=== PATIENT | female | born 1990 | race Caucasian/White ===

== ENCOUNTER 2017-02-15 12:28 | Emergency (ER) | payer MEDICAID ==
[~2017-02-15] VITALS: Ht 152.4 cm; Wt 56.7 kg
[~2017-02-15 12:28] MED LIST: ACHYD1T PO; AMOX500C2 PO; CLIN150C2 PO; CYCL10TA9 PO; DCS100C PO; DOCU100C37 PO; FERR-57 PO; HYDR100C2 PO; IBP800T PO; IBUP-1780 PO; MIRT15TA PO; OXYC-465 PO; PREN1TAB39 PO; RISP0.253 PO; TRAZ150T72 PO; TRM50T PO; VENL75CA PO
[2017-02-15] MEDS ORDERED: NS IV 1000 ML 1,000 ML IV ONE (12:48)
[2017-02-15 12:58] LABS: BASOPHILS % (AUTO) 1 % (0-10); EOSINOPHILS # (AUTO) 0.2 10^3/uL (0.0-0.3); EOSINOPHILS % (AUTO) 3 % (0-10); LYMPHOCYTES # (AUTO) 2.6 X 10^3 (1.0-4.0); LYMPHOCYTES % (AUTO) 39 % (12-44); MEAN CORPUSCULAR HEMOGLOBIN 29 PG (25-34); MEAN CORPUSCULAR HGB CONC 34 G/DL (32-36); MEAN CORPUSCULAR VOLUME 86 FL (80-99); MEAN PLATELET VOLUME 10.5 FL (7.4-10.4); MONOCYTES # (AUTO) 0.7 X 10^3 (0.0-1.0); MONOCYTES % (AUTO) 11 % (0-12); NEUTROPHILS % (AUTO) 46 % (42-75); PLATELET COUNT 256 10^3/uL (130-400); RED BLOOD COUNT 4.56 10^6/uL (4.35-5.85); RED CELL DISTRIBUTION WIDTH 14.4 % (10.0-14.5); WHITE BLOOD COUNT 6.5 10^3/uL (4.3-11.0)
[2017-02-15] MEDS ORDERED: D5 NS 1000 ML IV SOLUTION 1,000 ML IV ONE ×2 (13:16→13:21)
[2017-02-15 13:18] LABS: ALANINE AMINOTRANSFERASE 82 U/L (0-55); ALBUMIN 4.1 GM/DL (3.2-4.5); ALCOHOL < 10 MG/DL (<10); ANION GAP 10 MMOL/L (5-14); ASPARTATE AMINO TRANSFERASE 43 U/L (5-34); BILIRUBIN,TOTAL 0.3 MG/DL (0.1-1.0); BLOOD UREA NITROGEN 10 MG/DL (7-18); BUN/CREATININE RATIO 13; CALCIUM 9.3 MG/DL (8.5-10.1); CARBON DIOXIDE 23 MMOL/L (21-32); CHLORIDE 102 MMOL/L (98-107); CREATININE SERUM 0.77 MG/DL (0.60-1.30); GFR ESTIMATED > 60; MAGNESIUM 1.9 MG/DL (1.8-2.4); POTASSIUM 3.9 MMOL/L (3.6-5.0); SODIUM 135 MMOL/L (135-145); TOTAL PROTEIN 7.9 GM/DL (6.4-8.2)
--- NOTE | 2017-02-15 13:18 | ED Syncope ---
General Chief Complaint: Dizziness/Syncope Stated Complaint: FAINTING/BLCK OUT SPELLS Source of Information: Patient Exam Limitations: No Limitations History of Present Illness Time Seen by Provider: 12:38 Initial Comments This 26-year-old young lady presents to the emergency room with complaints of multiple episodes of syncope yesterday. She did have a couple episodes of very brief complete loss of consciousness. Lightheadedness and syncope always occurred when upright. She reports having headache from bumping her head on the edge of the bathtub. She does not believe this was a significant injury. There was no loss of consciousness. She denies any fever. She reports having a remote history of seizure but has not had seizures in many years and does not take medication for them. She denies any drug or alcohol use. She denies any significant heat exposure. Orthostatic vital signs were positive during initial assessment. Allergies and Home Medications Allergies Coded Allergies: No Known Drug Allergies (Unverified , 06/24/16) Home Medications Cephalexin 500 Mg Capsule, 500 MG PO QID, #28 Prescribed by: CAREY FOWLER on 02/15/17 1601 Docusate Sodium 100 Mg Capsule, 100 MG PO BID, #60 Prescribed by: SAMUEL DUMONT on 06/29/16 1720 Ibuprofen 800 Mg Tablet, 800 MG PO Q6HR, #60 Prescribed by: SAMUEL DUMONT on 06/29/16 1720 Mirtazapine 15 Mg Tablet, 15 MG PO HS, #0 Prescribed by: DAREN ARRIOLA on 06/29/16 0948 Oxycodone HCl/Acetaminophen 1 Each Tablet, 1-2 TAB PO Q4H PRN for PAIN, #60 Prescribed by: SAMUEL DUMONT on 06/29/16 1720 Risperidone 0.25 Mg Tablet, 0.25 MG PO BID, (Reported) Venlafaxine HCl 75 Mg Cap.er.24h, 75 MG PO DAILY, (Reported) Constitutional: no symptoms reported, No fever EENTM: no symptoms reported Respiratory: no symptoms reported Cardiovascular: see HPI Gastrointestinal: no symptoms reported Genitourinary: no symptoms reported : No Control/STD Prophylaxis: Other (hysterectomy) Musculoskeletal: no symptoms reported Skin: other (multiple scars throughout the skin from "bug bites") Psychiatric/Neurological: See HPI Past Mgqwaro-Xxfmqv-Awzkpr Hx Patient Social History Alcohol Use: Denies Use Recreational Drug Use: Yes (denies but prior documentation reports methamphetamine and Xanax use) Type Used: Cigarettes Recent Foreign Travel: No Contact w/Someone Who Travel: No Recent Hopitalizations: Yes (VAGINAL DELIVERY X2, , OVERDOSE 2-3 WEEKS AGO) Immunizations Up To Date Tetanus Booster (TDap): Unknown Seasonal Allergies Seasonal Allergies: No Surgeries HX Surgeries: Yes (D&C) Surgeries: Section, Hysterectomy ("partial"), Tonsillectomy Respiratory Hx Respiratory Disorders: No Cardiovascular Hx Cardiac Disorders: No Neurological Hx Neurological Disorders: No 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 System Hx 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: Yes (DUB, UTERINE PROLAPSE) Sexually Transmitted Disease: No Female 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: Denies Genitourinary Hx Genitourinary Disorders: Yes Genitourinary Disorders: Bladder Infection, Kidney Stones Gastrointestinal Hx Gastrointestinal Disorders: No Musculoskeletal Hx Musculoskeletal Disorders: No Endocrine Hx Endocrine Disorders: No HEENT HX ENT Disorders: Yes (GLASSES) Loss of Vision: Bilateral Hearing Impairment: Denies Cancer Hx Cancer: No Psychosocial Hx Psychiatric Problems: Yes Behavioral Health Disorders: Sleep Difficulties, Anxiety (with "picking"), Suicide Attempts, Personality Disorder, Depression Integumentary HX Skin/Integumentary Disorder: No Blood Transfusions Hx Blood Disorders: No Adverse Reaction to a Blood Tr: No (N/A) Family Medical History Significant Family History: No Pertinent Family Hx Family Medial History: No Family History of: Asthma Completed stroke Diabetes mellitus Hypertension Myocardial infarction Seizure disorder Physical Exam Vital Signs Vital Sign - Last 12Hours Capillary Refill : General Appearance: No Apparent Distress, WD/WN HEENT: PERRL/EOMI, Normal ENT Inspection, Pharynx Normal Neck: Normal Inspection Cardiovascular: Regular Rate, Rhythm, No Edema, No Murmur Respiratory: No Accessory Muscle Use, No Respiratory Distress, Crackles (left base) Gastrointestinal: Normal Bowel Sounds, Non Tender, Soft Extremities: Normal Inspection, No Pedal Edema, Other (skin lesion/scars scattered mostly on the lower extremities) Neurologic/Psychiatric: Alert, Oriented x3, No Motor/Sensory Deficits, Normal Mood/Affect, statistician applied II-XII Norm as Tested Cranial Nerves: Normal Hearing, Normal Speech, PERRL Motor/Sensory: No Motor Deficit, No Sensory Deficit Skin: Normal Color, Warm/Dry, Other (see above) Progress/Results/Core Measures Results/Orders Lab Results Laboratory Tests Test 02/15/17 12:55 02/15/17 13:45 02/15/17 14:35 Range/Units White Blood Count 6.5 4.3-11.0 10^3/uL Red Blood Count 4.56 4.35-5.85 10^6/uL Hemoglobin 13.4 11.5-16.0 G/DL Hematocrit 39 35-52 % Mean Corpuscular Volume 86 80-99 FL Mean Corpuscular Hemoglobin 29 25-34 PG Mean Corpuscular Hemoglobin Concent 34 32-36 G/DL Red Cell Distribution Width 14.4 10.0-14.5 % Platelet Count 256 130-400 10^3/uL Mean Platelet Volume 10.5 H 7.4-10.4 FL Neutrophils (%) (Auto) 46 42-75 % Lymphocytes (%) (Auto) 39 12-44 % Monocytes (%) (Auto) 11 0-12 % Eosinophils (%) (Auto) 3 0-10 % Basophils (%) (Auto) 1 0-10 % Neutrophils # (Auto) 3.0 1.8-7.8 X 10^3 Lymphocytes # (Auto) 2.6 1.0-4.0 X 10^3 Monocytes # (Auto) 0.7 0.0-1.0 X 10^3 Eosinophils # (Auto) 0.2 0.0-0.3 10^3/uL Basophils # (Auto) 0.0 0.0-0.1 10^3/uL Sodium Level 135 135-145 MMOL/L Potassium Level 3.9 3.6-5.0 MMOL/L Chloride Level 102 98-107 MMOL/L Carbon Dioxide Level 23 21-32 MMOL/L Anion Gap 10 5-14 MMOL/L Blood Urea Nitrogen 10 7-18 MG/DL Creatinine 0.77 0.60-1.30 MG/DL Estimat Glomerular Filtration Rate > 60 BUN/Creatinine Ratio 13 Glucose Level 57 *L 70-105 MG/DL Calcium Level 9.3 8.5-10.1 MG/DL Magnesium Level 1.9 1.8-2.4 MG/DL Total Bilirubin 0.3 0.1-1.0 MG/DL Aspartate Amino Transf (AST/SGOT) 43 H 5-34 U/L Alanine Aminotransferase (ALT/SGPT) 82 H 0-55 U/L Alkaline Phosphatase 93 40-136 U/L Total Protein 7.9 6.4-8.2 GM/DL Albumin 4.1 3.2-4.5 GM/DL Serum Alcohol < 10 <10 MG/DL Glucometer 187 H 70-110 MG/DL Urine Color YELLOW Urine Clarity SLIGHTLY CLOUDY Urine pH 6 5-9 Urine Specific [place] 1.010 L 1.016-1.022 Urine Protein NEGATIVE NEGATIVE Urine Glucose (UA) NEGATIVE NEGATIVE Urine Ketones NEGATIVE NEGATIVE Urine Nitrite POSITIVE H NEGATIVE Urine Bilirubin NEGATIVE NEGATIVE Urine Urobilinogen NORMAL NORMAL MG/DL Urine Leukocyte Esterase 2+ H NEGATIVE Urine RBC (Auto) NEGATIVE NEGATIVE Urine RBC NONE /HPF Urine WBC 10-25 H /HPF Urine Squamous Epithelial Cells 10-25 H /HPF Urine Crystals NONE /LPF Urine Bacteria LARGE H /HPF Urine Casts NONE /LPF Urine Mucus NEGATIVE /LPF Urine Culture Indicated YES Urine Opiates Screen NEGATIVE NEGATIVE Urine Oxycodone Screen NEGATIVE NEGATIVE Urine Methadone Screen NEGATIVE NEGATIVE Urine Propoxyphene Screen NEGATIVE NEGATIVE Urine Barbiturates Screen NEGATIVE NEGATIVE Ur Tricyclic Antidepressants Screen NEGATIVE NEGATIVE Urine Phencyclidine Screen NEGATIVE NEGATIVE Urine Amphetamines Screen NEGATIVE NEGATIVE Urine Methamphetamines Screen NEGATIVE NEGATIVE Urine Benzodiazepines Screen NEGATIVE NEGATIVE Urine Cocaine Screen NEGATIVE NEGATIVE Urine Cannabinoids Screen NEGATIVE NEGATIVE Micro Results Microbiology 02/15/17 Urine Culture - Preliminary, Resulted Escherichia Coli Yeast Species My Orders Orders - CAREY GERMAN MD Alcohol (02/15/17 12:48) Cbc With Automated Diff (02/15/17 12:48) Comprehensive Metabolic Panel (02/15/17 12:48) Drug Screen Stat (Urine) (02/15/17 12:48) Magnesium (02/15/17 12:48) Ua Culture If Indicated (02/15/17 12:48) Ekg Tracing (02/15/17 12:48) Monitor-Rhythm Ecg Trace Only (02/15/17 12:48) Chest 1 View, Ap/Pa Only (02/15/17 12:48) Saline Lock/Iv-Start (02/15/17 12:48) Ns Iv 1000 Ml (Sodium Chloride 0.9%) (02/15/17 12:48) Orthostatic Vital Signs (02/15/17 12:48) D5 Ns 1000 Ml Iv Solution (Dextrose 5%/0 (02/15/17 13:21) D5 Ns 1000 Ml Iv Solution (Dextrose 5%/0 (02/15/17 13:16) Accucheck Stat ONCE (02/15/17 13:35) Urine Culture (02/15/17 14:35) Ceftriaxone Injection (Rocephin Injectio (02/15/17 15:15) Ns Iv 500 Ml (Sodium Chloride 0.9%) (02/15/17 15:07) Iv Infusion <= First Hr Ed (02/15/17 ) Medications Given in ED Vital Signs/I&O Vital Sign - Last 12Hours 02/15/17 02/15/17 02/15/17 13:00 13:00 16:15 Temp 98.2 Pulse 75 61 68 78 87 Resp 20 20 B/P (MAP) 98/57 Pulse Ox 100 100 Progress Note #1: Time: 13:12 Progress Note Patient has been seen and examined. Orthostatic vital signs were obtained with a significant drop in blood pressure and significant increase in heart rate. Patient is receiving IV fluids. Labs and chest x-ray pending. Progress Note #2: Time: 13:22 Progress Note Blood sugar was noted to be 57 on her blood draw. Patient will be given some crackers to eat and her normal saline will be switched out with D5 normal saline. She remains alert and oriented. Progress Note #3: Progress Note Blood sugar improved to 187 after receiving a liter of D5 normal saline and eating crackers. She received a total of 1500 mL in fluid boluses. Hypotension resolved. She was found to have urinary tract infection and was given Rocephin. Review of her medication list noted risperidone. Risperidone could cause hypotension but patient denies any recent use. She was asymptomatic in the standing position prior to dismissal. ECG Initial ECG Impression Date: Feb 15, 2017 Initial ECG Impression Time: 12:58 Initial ECG Rate: 63 Initial ECG Rhythm: Normal Sinus Initial ECG Intervals: QT (prolonged) Comment Sinus rhythm with no ST elevation or depression. Prolonged QT interval. Automated read states consider RVH with secondary repolarization. T waves appear slightly peaked. Diagnostic Imaging Diagonstic Imaging: Xray Plain Films/CT/US/NM/MRI: chest Comments Chest x-ray viewed by me and report reviewed. See report below: NAME: FARIBA JOLLEY [facility] REC#: [id number] PT STATUS: REG ER : 1990 PHYSICIAN: CAREY GERMAN MD ADMIT DATE: 02/15/17/ER Draft Date of Exam:02/15/17 CHEST 1 VIEW, AP/PA ONLY EXAMINATION: Portable erect AP chest at 1:06 p.m. INDICATION: Syncope. FINDINGS: The heart size is within normal limits and stable when compared to 06/27/2016. The lungs remain clear. There is still no sign of failure, pneumonia, or of pleural effusion. The mediastinum is not widened. The osseous structures are intact. IMPRESSION: There is no evidence for active disease. Dictated on workstation # [id number] Dict: 02/15/17 1317 Trans: 02/15/17 1321 [id number] Interpreted by: EHSAN SOLORZANO MD Departure Impression Impression: Primary Impression: Syncope Qualified Codes: R55 - Syncope and collapse Additional Impressions: Orthostatic hypotension Hypovolemia Urinary tract infection Qualified Codes: N39.0 - Urinary tract infection, site not specified Disposition: 01 HOME, SELF-CARE Condition: Improved Departure-Patient Inst. Decision time for Depature: 15:30 Referrals: NO,LOCAL PHYSICIAN (PCP/Family) Primary Care Physician Patient Instructions: Orthostatic Hypotension (DC), Syncope (Fainting) (DC), Urinary Tract Infections in Adults Add. Discharge Instructions: Drink plenty of clear liquids. Complete your antibiotics as prescribed. Please follow-up with your primary care provider later this week and review your urine cultures with your doctor. Return to care if symptoms persist or worsen. All discharge instructions reviewed with patient and/or family. Voiced understanding. Scripts Cephalexin (Keflex) 500 Mg Capsule 500 MG PO QID, #28 CAP Prov: CAREY GERMAN MD 02/15/17 CAREY GERMAN MD Feb 15, 2017 13:18
[2017-02-15 13:20] LABS: GLUCOSE 57 MG/DL (70-105)
--- NOTE | 2017-02-15 13:21 | Diagnostic Imaging Report ---
EXAMINATION: Portable erect AP chest at 1:06 p.m. INDICATION: Syncope. FINDINGS: The heart size is within normal limits and stable when compared to 06/27/2016. The lungs remain clear. There is still no sign of failure, pneumonia, or of pleural effusion. The mediastinum is not widened. The osseous structures are intact. IMPRESSION: There is no evidence for active disease. Dictated by: Dictated on workstation # [id number]
[2017-02-15 14:42] LABS: BILIRUBIN,URINE NEGATIVE (NEGATIVE); KETONES,URINE NEGATIVE (NEGATIVE); LEUKOCYTE ESTERASE ,URINE 2+ (NEGATIVE); NITRITE,URINE POSITIVE (NEGATIVE); PH,URINE 6 (5-9); PROTEIN,URINE NEGATIVE (NEGATIVE); UROBILINOGEN,URINE NORMAL (NORMAL)
[2017-02-15] MEDS ORDERED: NS IV 500 ML 500 ML IV ONE (15:07)
[2017-02-15] MEDS ORDERED: cefTRIAXone INJECTION 1,000 MG in NS (IVPB) 50 ML IV ONE (15:15)
[2017-02-15] MEDS ORDERED: CEPH-507 PO (16:01)
[2017-02-15 16:15] VITALS: BP 91/58
--- OUTSIDE RECORDS SUMMARY | 2017-02-24 18:31 | XMS REPORT ---
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
--- OUTSIDE RECORDS SUMMARY | 2017-02-24 18:31 | XMS REPORT ---
Author RUTH Rodriguez eClinical[employer] Address Unknown Phone Unavailable Care Team Providers Care Behavior Therapist Name Role Phone RUTH SAMANO CP Unavailable Allergies, Adverse Reactions, Alerts Substance Reaction Event Type N.K.D.A. Info Not Available Non Drug Allergy Problems Problem Type Condition Code Onset Dates Condition Status Problem Lumbago 724.2 Active Problem Person feigning illness V65.2 Active Problem Influenza with other respiratory manifestations 487.1 Active Assessment Dental examination Z01.20 Active Problem Encounter for counseling regarding contraception Z30.9 Active Problem Encounter for initial prescription of injectable contraceptive Z30.013 Active Problem History of abnormal cervical Pap smear Z87.898 Active Problem Other convulsions 780.39 Active Problem Unspecified epilepsy without mention of intractable epilepsy 345.90 Active Problem Major depress, sev w/ psych F32.3 Active Problem 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 Medications Medication Code System Code Instructions Start Date End Date Status Dosage Depo-Provera [facility] [address]-45 150 MG/ML Intramuscular q3 months Apr 30, 2015 Apr 24, 2016 1 ml Amoxicillin [facility] [address]-89 500 MG Orally 4 times a day Apr 22, 2016 Apr 29, 2016 1 capsule Procedures Procedure Coding System Code Date BITEWINGS - FOUR FILMS CPT-4 D0274 Apr 22, 2016 PANORAMIC FILM SEE ALSO CODE 25625 CPT-4 D0330 Apr 22, 2016 COMP ORAL EVALUATION - NEW/EST PT CPT-4 D0150 Apr 22, 2016 Vital Signs Date/Time: Apr 22, 2016 Blood Pressure Diastolic 69 mmHg Blood Pressure Systolic 134 mmHg Height 58 in Results No Known Results Summary Purpose eClinicalWorks Submission
--- OUTSIDE RECORDS SUMMARY | 2017-02-24 18:31 | XMS REPORT ---
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
--- OUTSIDE RECORDS SUMMARY | 2017-02-24 18:31 | XMS REPORT ---
Author PRETTY Ledezma [facility] eClinicalWorks Address Unknown Phone Unavailable Care Team Providers Care Chronometer Assembler And Adjuster Name Role Phone PRETTY REMY CP Unavailable Allergies No Known Allergies Problems Problem Type Condition ICD-9 Code Onset Dates Condition Status Problem Unspecified epilepsy without mention of intractable epilepsy 345.90 Active Problem Person feigning illness V65.2 Active Problem Other convulsions 780.39 Active Assessment Dental examination V72.2 Active Problem Influenza with other respiratory manifestations 487.1 Active Problem Lumbago 724.2 Active Medications No Known Medications Procedures Procedure Coding System Code Date INTRAORL-PERIAPICAL 1 FILM 93095 CPT-4 D0220 February 22, 2015 BITEWING - SINGLE FILM CPT-4 D0270 February 22, 2015 LTD ORAL EVALUATION - PROBLEM FOCUS CPT-4 D0140 February 22, 2015 EXTRAC ERUPTED TOOTH/EXPOSED ROOT CPT-4 D7140 February 22, 2015 Results No Known Results Summary Purpose eClinicalWorks Submission
--- OUTSIDE RECORDS SUMMARY | 2017-02-24 18:31 | XMS REPORT ---
Author Author SALIMA WHITLOCK [facility] Address [address] [place] [address] Care Team Providers Care Lead Rider Name Role Phone SALIMA WHITLOCK Unavailable PROBLEMS Type Condition ICD9-CM Code [id number] Code Onset Dates Condition Status SNOMED Code Problem Influenza with other respiratory manifestations 487.1 Active 0512238 Problem Unspecified epilepsy without mention of intractable epilepsy 345.90 Active 85191743 Problem Person feigning illness V65.2 Active 26966256 Problem Lumbago 724.2 Active 829904328 Problem History of abnormal cervical Pap smear Z87.898 Active 121260593 Problem Encounter for counseling regarding contraception Z30.9 Active 47706850 Problem 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
--- OUTSIDE RECORDS SUMMARY | 2017-02-24 18:31 | XMS REPORT ---
Author Author SALIMA WHITLOCK [facility] eClinicalWorks Address Unknown Phone Unavailable Care Team Providers Care Jointer Operator Name Role Phone SALIMA WHITLOCK Unavailable Allergies, Adverse Reactions, Alerts Substance Reaction Event Type N.K.D.A. Info Not Available Non Drug Allergy Problems Problem Type Condition Code Onset Dates Condition Status Problem Lumbago 724.2 Active Problem Person feigning illness V65.2 Active Problem Influenza with other respiratory manifestations 487.1 Active Problem Encounter for counseling regarding contraception Z30.9 Active Problem Encounter for initial prescription of injectable contraceptive Z30.013 Active Problem History of abnormal cervical Pap smear Z87.898 Active Problem Other convulsions 780.39 Active Problem Unspecified epilepsy without mention of intractable epilepsy 345.90 Active Problem Major depress, sev w/ psych F32.3 Active Problem 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 Assessment Routine gynecological examination Z01.419 Active Assessment Encounter for initial prescription of injectable contraceptive Z30.013 Active Assessment Encounter for counseling regarding contraception Z30.9 Active Assessment Encounter for Depo-Provera contraception Z30.42 Active Assessment History of abnormal cervical Pap smear Z87.898 Active Medications No Known Medications Procedures Procedure Coding System Code Date SPECIMEN HANDLING CPT-4 14964 Mar 24, 2016 No Charge CPT-4 63184 Mar 24, 2016 URINE TEST CPT-4 99265 Mar 24, 2016 THER/PROPH/DIAG INJ, SC/IM CPT-4 79905 Mar 24, 2016 STYLES VAG, DNA, DIR PROBE CPT-4 92773 Mar 24, 2016 [facility] CPT-4 NOBLL Mar 24, 2016 DEPO PROVERA (150 MG/ML) CPT-4 J1050 Mar 24, 2016 Office Visit, Est Pt., Level 5 CPT-4 76795 Mar 24, 2016 Vital Signs Date/Time: Mar 24, 2016 Cardiac Monitoring Heart Rate 90 bpm Weight 106.2 lbs Height 58 in BMI 22.19 Index Blood Pressure Diastolic 62 mmHg Blood Pressure Systolic 98 mmHg Results No Known Results Summary Purpose eClinicalWorks Submission
--- OUTSIDE RECORDS SUMMARY | 2017-02-24 18:31 | XMS REPORT ---
Author PRETTY Ledezma [facility] eClinicalWorks Address Unknown Phone Unavailable Care Team Providers Care Blown Film Extrusion Operator Name Role Phone PRETTY REMY CP Unavailable Allergies, Adverse Reactions, Alerts Substance Reaction Event Type N.K.D.A. Info Not Available Non Drug Allergy Problems Problem Type Condition Code Onset Dates Condition Status Problem Unspecified epilepsy without mention of intractable epilepsy 345.90 Active Problem Person feigning illness V65.2 Active Problem Other convulsions 780.39 Active Assessment Dental examination Z01.20 Active Assessment Dental caries K02.9 Active Problem Influenza with other respiratory manifestations 487.1 Active Problem Lumbago 724.2 Active Medications No Known Medications Procedures Procedure Coding System Code Date INTRAORL-PERIAPICAL 1 FILM 64295 CPT-4 D0220 Jul 30, 2015 EXTRAC ERUPTED TOOTH/EXPOSED ROOT CPT-4 D7140 Jul 30, 2015 LTD ORAL EVALUATION - PROBLEM FOCUS CPT-4 D0140 Jul 30, 2015 Vital Signs Date/Time: Jul 30, 2015 Blood Pressure Diastolic 59 mmHg Blood Pressure Systolic 101 mmHg Results No Known Results Summary Purpose eClinicalWorks Submission
--- OUTSIDE RECORDS SUMMARY | 2017-02-24 18:31 | XMS REPORT ---
Author Author VY ZHANG [facility] eClinicalWorks Address Unknown Phone Unavailable Care Team Providers Care Hot Metal Mixer Operator Helper Name Role Phone VY ZHANG CP Unavailable Allergies, Adverse Reactions, Alerts Substance Reaction Event Type N.K.D.A. Info Not Available Non Drug Allergy Problems Problem Type Condition Code Onset Dates Condition Status Problem Lumbago 724.2 Active Problem Person feigning illness V65.2 Active Problem Influenza with other respiratory manifestations 487.1 Active Assessment Acute non-recurrent maxillary sinusitis J01.00 Active Assessment Acute cystitis without hematuria N30.00 Active Problem Encounter for counseling regarding contraception [...] Instructions Start Date End Date Status Dosage Venlafaxine HCl [facility] [address]-74 75 MG Orally Once a day 1 tablet with food HydrOXYzine HCl [facility] [address]-30 25 MG/ML Intramuscular not defined Bactrim DS [facility] [address]-27 800-160 MG Orally Twice a day May 19, 2016 May 29, 2016 1 tablet Ibuprofen [facility] [address]-65 800 MG Orally Three times a day May 19, 2016 May 29, 2016 1 tablet Trazodone HCl [facility] [address]-31 100 MG Orally Once a day 1 tablet at bedtime Fluticasone Propionate [facility] [address]-53 50 MCG/ACT Nasally Once a day May 19, 2016 1-2 spray in each nostril Procedures Procedure Coding System Code Date Office Visit, Est Pt., Level 3 CPT-4 39516 May 19, 2016 URINALYSIS, AUTO, W/O SCOPE CPT-4 01797 May 19, 2016 Vital Signs Date/Time: May 19, 2016 Cardiac Monitoring Heart Rate 100 bpm Weight 112.8 lbs Height 58 in BMI 23.57 Index Blood Pressure Diastolic 74 mmHg Blood Pressure Systolic 120 mmHg Results Name Result Date Reference Range Unit Abnormality Flag UA LONG DIP (IN HOUSE) ----JAJA 1+ [id number] ----NIT positive [id number] ----Exp date [id number] ----Lot # [id number] ----SG 1.010 [id number] ----KET negative [id number] ----LEO negative [id number] ----GLU negative [id number] ----Odor none [id number] ----pH 6.0 20160519 ----BLO negative [id number] ----URO 0.2 20160519 ----Protein negative [id number] ----Lot # [id number] ----Exp date [id number] ----Clarity clear 20160519 ----Color yellow [id number] Summary Purpose eClinicalWorks Submission
--- OUTSIDE RECORDS SUMMARY | 2017-02-24 18:31 | XMS REPORT ---
Author PRETTY Ledezma [facility] eClinicalWorks Address Unknown Phone Unavailable Care Team Providers Care Promotion Officer Name Role Phone PRETTY REMY CP Unavailable [...] Procedures Procedure Coding System Code Date INTRAORL-PERIAPICAL EA ADD FILM CPT-4 D0230 Mar 28, 2015 BITEWING - SINGLE FILM CPT-4 D0270 Mar 28, 2015 INTRAORL-PERIAPICAL 1 FILM 80702 CPT-4 D0220 Mar 28, 2015 EXTRAC ERUPTED TOOTH/EXPOSED ROOT CPT-4 D7140 Mar 28, 2015 Results No Known Results Summary Purpose eClinicalWorks Submission
--- OUTSIDE RECORDS SUMMARY | 2017-02-24 18:32 | XMS REPORT ---
Author Author MONTRELLSHERMANKELLY Organization [facility] Address [address] [place] [address] Care Team Providers Care Ribbon Sweatband Operator Name Role Phone STOCKKELLY Ramsey Unavailable PROBLEMS Type Condition ICD9-CM Code [id number] Code Onset Dates Condition Status SNOMED Code Problem Influenza with other respiratory manifestations 487.1 Active 1418589 Problem Unspecified epilepsy without mention of intractable epilepsy 345.90 Active 91197697 Problem Person feigning illness V65.2 Active 97327753 Assessment Cystitis N30.90 Jul, Active 76746411 Assessment Burning with urination R30.0 Jul, Active 11338550 Problem Lumbago 724.2 Active 231236996 Problem History of abnormal cervical Pap smear Z87.898 Active 364097022 Problem Encounter for counseling regarding contraception Z30.9 Active 95432390 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 Unknown Non Drug Allergy Jul, Unknown SOCIAL HISTORY No smoking Hx information available PLAN OF CARE VITAL SIGNS Height 58 in 2016-07-13 Weight 124.4 lbs 2016-07-13 Heart Rate 88 bpm 2016-07-13 Respiratory Rate 20 2016-07-13 BMI 26.00 kg/m2 2016-07-13 Blood pressure systolic 114 mmHg 2016-07-13 Blood pressure diastolic 66 mmHg 2016-07-13 MEDICATIONS Medication Instructions Dosage Frequency Start Date End Date Duration Status HydrOXYzine HCl 25 MG/ML Active Pyridium 100 MG Orally Three times a day 1 tablets after meals 8h Jul, Jul, 2 day(s) Active Bactrim DS 800-160 MG Orally Twice a day 1 tablet 12h Jul,Jul 05 days Active RESULTS Name Result Date Reference Range UA LONG DIP (IN HOUSE) 2016-07-13 Lot # [id number] Exp date 2017 08 31 Clarity clear Color yellow Odor none GLU negative LEO negative KET negative SG 1.020 BLO negative pH 6.5 Protein negative URO 0.2 NIT positive JAJA negative Lot # [id number] Exp date 2017 09 PROCEDURES Procedure Date Ordered Related Diagnosis Body Site URINALYSIS, AUTO, W/O SCOPE Jul 13, 2016 Office Visit, Est Pt., Level 3 Jul 13, 2016 IMMUNIZATIONS No Known Immunizations
--- OUTSIDE RECORDS SUMMARY | 2017-02-24 18:32 | XMS REPORT ---
Author Author MADELYN LOAIZA [facility] eClinicalWorks Address Unknown Phone Unavailable Care Team Providers Care Satellite Dish Technician Name Role Phone MADELYN LOAIZA CP Unavailable Allergies, Adverse Reactions, Alerts Substance Reaction Event Type N.K.D.A. Info Not Available Non Drug Allergy Problems Problem Type Condition Code Onset Dates Condition Status Assessment Major depress, sev w/ psych F32.3 Active [...] illness V65.2 Active Medications No Known Medications Procedures Procedure Coding System Code Date Office Visit, New Pt., Level 5 CPT-4 58728 February 21, 2016 Vital Signs Date/Time: February 21, 2016 Cardiac Monitoring Heart Rate 139 bpm Weight 97.6 lbs Height 58 in Blood Pressure Diastolic 75 mmHg Blood Pressure Systolic 90 mmHg Results No Known Results Summary Purpose eClinicalWorks Submission
--- OUTSIDE RECORDS SUMMARY | 2017-02-24 18:32 | XMS REPORT ---
Author GARCÍA Amor [facility] eClinicalWorks Address Unknown Phone Unavailable Care Team Providers Care Reaming Machine Tender Name Role Phone GARCÍA VILLA CP Unavailable Allergies, Adverse Reactions, Alerts Substance Reaction Event Type N.K.D.A. Info Not Available Non Drug Allergy Problems Problem Type Condition Code Onset Dates Condition Status Problem Unspecified epilepsy without mention of intractable epilepsy 345.90 Active Problem Person feigning illness V65.2 Active Problem Other convulsions 780.39 Active Assessment Atyp squam cell of undet signfc cyto smr crvx (ASC-US) R87.610 Active Assessment Cervical high risk human papillomavirus (HPV) DNA test positive R87.810 Active Problem Influenza with other respiratory manifestations 487.1 Active Problem Lumbago 724.2 Active Medications Medication Code System Code Instructions Start Date End Date Status Dosage Depo-Provera IAC [address]-28 150 MG/ML Intramuscular q3 months Apr 30, 2015 Apr 24, 2016 1 ml Procedures Procedure Coding System Code Date URINE TEST CPT-4 97937 May 15, 2015 Vital Signs Date/Time: May 15, 2015 Temperature 98.0 F Weight 113.0 lbs Height 58 in BMI 23.61 Index Blood Pressure Diastolic 64 mmHg Blood Pressure Systolic 112 mmHg Cardiac Monitoring Heart Rate 84 bpm Results Name Result Date Reference Range Unit Abnormality Flag TEST, URINE (IN HOUSE) Summary Purpose eClinicalWorks Submission
--- OUTSIDE RECORDS SUMMARY | 2017-02-24 18:32 | XMS REPORT ---
Author Author SIMÓN DECKER eClinicalWorks Address Unknown Phone Unavailable Care Team Providers Care Mechanical Estimator Name Role Phone SIMÓN DECKER CP Unavailable Allergies No Known Allergies Problems [...] Medications Procedures Procedure Coding System Code Date Psychotherapy, patient &/family, 30 minutes, established patient CPT-4 08122 February 20, 2016 Results No Known Results Summary Purpose eClinicalWorks Submission
== END 2017-02-15 16:15 | disposition home or self-care (01) ==
LOC: EDUNIT# 12:28 → ER 12:33
DX: I95.1 Orthostatic hypotension (principal); N39.0 Urinary tract infection, site not specified; E86.1 Hypovolemia; F41.9 Anxiety disorder, unspecified; F32.9 Major depressive disorder, single episode, unspecified; F60.9 Personality disorder, unspecified; Z87.448 Personal history of other diseases of urinary system; Z90.711 Acquired absence of uterus with remaining cervical stump; Z91.5 Personal history of self-harm; Z87.442 Personal history of urinary calculi
CPT/HCPCS: 36415; 71010; 80053; 80306; 80320; 81000; 82962; 83735; 85025; 87088; 87186; 93005; 93041; 96361; 96365

== ENCOUNTER 2017-05-05 15:18 | Observation (INO) | payer MEDICAID ==
[~2017-05-05] VITALS: Ht 152.4 cm; Wt 46.7 kg
[~2017-05-05 15:18] MED LIST changes: +CEPH-507 PO; +WATER (STERILE) FOR INJECTION 20 ML ONE; +ZIPRASIDONE 20 MG INJ (GEODON) VIAL IM ONE
[2017-05-05] MEDS ORDERED: MIDAZOLAM 5 MG/5 ML (VERSED) VIAL ONE (15:43)
[2017-05-05] MEDS ORDERED: fentaNYL INJECTION 100 MCG/2 ML AMP ONE (15:43)
[2017-05-05] MEDS ORDERED: LIDOCAINE 1% INJ 20 ML (XYLOCAINE) VIAL ONE (15:44)
[2017-05-05] MEDS ORDERED: LIDOCAINE 1% INJ 20 ML (XYLOCAINE) VIAL INJ STA (16:02)
[2017-05-05] MEDS ORDERED: fentaNYL INJECTION 100 MCG/2 ML AMP IVP STA (16:02)
[2017-05-05] MEDS ORDERED: TETANUS,DIPTH,PERTUSS P/F (BOOSTRIX) 0.5 ML VIAL IM STA (16:02)
--- NOTE | 2017-05-05 16:08 | ED Psychosocial ---
General Stated Complaint: SUICIDAL;SELF INFLICTED LACERATION Nursing Triage Note: Self-inflicted laceration left wrist, suicide attempt Source: patient, police, EMS (RAYMOND WOLF) History of Present Illness Time seen by provider: 15:18 Initial Comments 26-year-old female patient presents to the emergency Department with reports of a self-inflicted laceration to left wrist and attempted suicide. PD and EMS state witnesses at the scene reported patient "cut her wrist with a knife." Patient states she put her arm through a window. Patient states she was previously on Depakote for seizure disorder and depression, but has not taken this for at least a year. Timing/Duration: just prior to arrival Associated Symptoms: anxiety, impaired concentration, suicidal ideation (RAYMOND WOLF) Allergies and Home Medications Allergies Coded Allergies: No Known Drug Allergies (Unverified , 06/24/16) Home Medications Acetaminophen 325 Mg Tablet, 650 MG PO Q6H, #60 Prescribed by: AMISHA HUGO on 05/06/17 1602 Cephalexin 250 Mg Capsule, 500 MG PO QID for 6 Days, #24 Prescribed by: OLEGARIO WARD on 05/06/17 1240 Divalproex Sodium 250 Mg Tablet.dr, 250 MG PO BID, (Reported) LAST FILLED #30 03-18-17 Constitutional: no symptoms reported EENTM: no symptoms reported Respiratory: No cough, No short of breath Cardiovascular: No chest pain, No palpitations, No syncope Gastrointestinal: no symptoms reported Genitourinary: no symptoms reported Musculoskeletal: No back pain, joint pain (left wrist), No neck pain Skin: see HPI, other (laceration left wrist) Psychiatric/Neurological: Anxiety, Depressed, Emotional Problems, Denies Numbness, Denies Paresthesia, Denies Seizure, Denies Tingling, Denies Weakness ( RAYMOND WOLF) All Other Systems Reviewed Negative Unless Noted: Yes (Negative excepted noted.) (RAYMOND WOLF) Past Dbeuiha-Imxgfk-Ponrhr Hx Patient Social History Type Used: Cigarettes Recent Hopitalizations: No (VAGINAL DELIVERY X2, , OVERDOSE 2-3 WEEKS AGO) (RAYMOND WOLF) Immunizations Up To Date Tetanus Booster (TDap): Unknown (RAYMOND WOLF) Seasonal Allergies Seasonal Allergies: No (RAYMOND WOLF) Surgeries History of Surgeries: Yes (D&C) Surgeries: Section, Hysterectomy, Tonsillectomy (RAYMOND WOLF) Respiratory History of Respiratory Disorde: No (RAYMOND WOLF) Cardiovascular History of Cardiac Disorders: No (RAYMOND WOLF) Neurological History of Neurological Disord: No (RAYMOND WOLF) 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 System Hx 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: Yes (DUB, UTERINE PROLAPSE) Sexually Transmitted Disease: No Female 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: Denies 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 (RAYMOND WOLF) Genitourinary Genitourinary Disorders: Bladder Infection, Kidney Stones (RAYMOND WOLF) Gastrointestinal History of Gastrointestinal Di: No (RAYMOND WOLF) Musculoskeletal History of Musculoskeletal Dis: No (RAYMOND WOLF) Endocrine History of Endocrine Disorders: No (RAYMOND WOLF) HEENT Loss of Vision: Bilateral Hearing Impairment: Denies (RAYMOND WOLF) Cancer History of Cancer: No (RAYMOND WOLF) Psychosocial History of Psychiatric Problem: Yes Behavioral Health Disorders: Sleep Difficulties, Anxiety, Suicide Attempts, Personality Disorder, Depression (RAYMOND WOLF) Integumentary History of Skin or Integumenta: No (RAYMOND WOLF) Blood Transfusions History of Blood Disorders: No Adverse Reaction to a Blood Tr: No (N/A) (RAYMOND WOLF) Reviewed Nursing Assessment Reviewed/Agree w Nursing PMH: Yes (RAYMOND WOLF) Family Medical History Significant Family History: No Pertinent Family Hx Family Medial History: No Family History of: Asthma Completed stroke Diabetes mellitus Hypertension Myocardial infarction Seizure disorder (RAYMOND WOLF) Family Medial History: No Family History of: Asthma Completed stroke Diabetes mellitus Hypertension Myocardial infarction Seizure disorder (LISBET TAYLOR MD) Physical Exam Vital Signs Vital Sign - Last 12Hours 05/05/17 15:18 Temp 98.3 Pulse 118 Resp 20 B/P (MAP) 144/99 Pulse Ox 99 O2 Delivery Room Air (LISBET TAYLOR MD) Vital Signs Capillary Refill : (RAYMOND WOLF) General Appearance: WD/WN, no apparent distress HEENT: PERRL/EOMI, pharynx normal, other (multiple sores on the face without cellulitis) Neck: supple, normal inspection Respiratory: lungs clear, normal breath sounds, no respiratory distress, no accessory muscle use Cardiovascular: normal peripheral pulses, regular rate, rhythm, no edema, no murmur Peripheral Pulses: 2+ Radial Pulses (R), 2+ Radial Pulses (L) Gastrointestinal: normal bowel sounds, non tender, soft, no organomegaly Extremities: no pedal edema, normal capillary refill, other (6 cm laceration left anterior wrist involving skin, SC, and muscle belly with active arterial and venous bleeding. TTP. Patient is able to move all fingers slightly. irregular 1 cm laceration posterior distal ring finger. several linear abrasions left mid and proximal anterior forearm without active bleeding. 2 cm irregular laceration left medial forearm without active bleeding.) Neurologic/Psychiatric: alert, oriented x 3, sensory deficit (left ring finger) , depressed affect, other (hysterical with any stimulation.) Appearance/Memory: no memory impairment, denies illness, disheveled, impaired insight Behavior/Eye Contact: avoids eye contact, decreased rate of speech, compulsive , uncooperative (at times uncooperative with exam.) Thoughts/Hallucinations: normal thought pattern, no apparent hallucination Skin: normal color, warm/dry, other (6 cm laceration left anterior wrist involving skin, SC, and muscle belly with active arterial and venous bleeding. irregular 1 cm laceration posterior distal ring finger. several linear abrasions left mid and proximal anterior forearm without active bleeding. 2 cm irregular laceration left medial forearm without active bleeding.) (RAYMOND WOLF) Progress/Results/Core Measures Results/Orders Lab Results Laboratory Tests Test 05/06/17 04:15 Range/Units White Blood Count 5.9 4.3-11.0 10^3/uL Red Blood Count 3.40 L 4.35-5.85 10^6/uL Hemoglobin 10.2 L 11.5-16.0 G/DL Hematocrit 30 L 35-52 % Mean Corpuscular Volume 87 80-99 FL Mean Corpuscular Hemoglobin 30 25-34 PG Mean Corpuscular Hemoglobin Concent 35 32-36 G/DL Red Cell Distribution Width 14.0 10.0-14.5 % Platelet Count 212 130-400 10^3/uL Mean Platelet Volume 10.9 H 7.4-10.4 FL Neutrophils (%) (Auto) 46 42-75 % Lymphocytes (%) (Auto) 41 12-44 % Monocytes (%) (Auto) 9 0-12 % Eosinophils (%) (Auto) 3 0-10 % Basophils (%) (Auto) 0 0-10 % Neutrophils # (Auto) 2.8 1.8-7.8 X 10^3 Lymphocytes # (Auto) 2.5 1.0-4.0 X 10^3 Monocytes # (Auto) 0.5 0.0-1.0 X 10^3 Eosinophils # (Auto) 0.2 0.0-0.3 10^3/uL Basophils # (Auto) 0.0 0.0-0.1 10^3/uL Sodium Level 138 135-145 MMOL/L Potassium Level 3.4 L 3.6-5.0 MMOL/L Chloride Level 109 H 98-107 MMOL/L Carbon Dioxide Level 21 21-32 MMOL/L Anion Gap 8 5-14 MMOL/L Blood Urea Nitrogen 3 L 7-18 MG/DL Creatinine 0.55 L 0.60-1.30 MG/DL Estimat Glomerular Filtration Rate > 60 BUN/Creatinine Ratio 5 Glucose Level 79 70-105 MG/DL Calcium Level 8.0 L 8.5-10.1 MG/DL Phosphorus Level 2.6 2.3-4.7 MG/DL Magnesium Level 1.5 L 1.8-2.4 MG/DL Total Bilirubin 0.4 0.1-1.0 MG/DL Aspartate Amino Transf (AST/SGOT) 37 H 5-34 U/L Alanine Aminotransferase (ALT/SGPT) 54 0-55 U/L Alkaline Phosphatase 67 40-136 U/L Total Protein 6.0 L 6.4-8.2 GM/DL Albumin 3.3 3.2-4.5 GM/DL (LISBET TAYLOR MD) My Orders Orders - LISBET TAYLOR MD Iv Push Vessel Welder Ed (05/05/17 ) Im/Sub-Q Injection Non-Ab Ed (05/05/17 ) (LISBET TAYLOR MD) Progress Note : Progress Note Patient seen and evaluated with LUIS Gaviria. I agree with above except as indicated. I agree with the plan of care. I discussed the case with Dr. Ayala. Admission appropriate and indicated. (LISBET TAYLOR MD) ECG Initial ECG Impression Date: May 05, 2017 Initial ECG Impression Time: 17:01 Initial ECG Rate: 89 Initial ECG Rhythm: Normal Sinus Initial ECG Intervals: Normal Initial ECG Impression: Normal Initial ECG Comparisson: Unchanged Comment Sinus rhythm. No STEMI or arrhythmia noted. ECG reviewed and discussed with Dr. Taylor. (ARYMOND WOLF) Departure Communication (Admissions) Time/Spoke to Admitting Phy: 16:[address] Olegario Ward accepts patient to her medical service Progress Notes 1600 Dr. Ayala in ED to evaluate the patient. Plan for admit to ICU for observation. When patient is medically cleared, [facility] will be contacted to evaluate the patient and to assist with inpt behavioral placement. Patient is resting comfortably after being given Geodon, Versed, and fentanyl. Patient seen and evaluated with Dr. Taylor. (RAYMOND WOLF) Impression Impression: Primary Impression: Suicide attempt Additional Impression: Laceration of left wrist Qualified Codes: S61.512A - Laceration without foreign body of left wrist, initial encounter Disposition: ADMITTED INPATIENT Condition: Stable Admissions Decision to Admit Reason: Admit from ER (General) Decision to Admit/Date: May 05, 2017 Time/Decision to Admit Time: 16:00 (RAYMOND WOLF) Departure-Patient Inst. Referrals: NO,LOCAL PHYSICIAN (PCP/Family) Primary Care Physician Scripts Acetaminophen (Tylenol) 325 Mg Tablet 650 MG PO Q6H for Pain, #60 TAB Prov: OLEGARIO WARD MD 05/06/17 Cephalexin (Cephalexin) 250 Mg Capsule 500 MG PO QID for 6 Days, #24 CAP Prov: OLEGARIO WARD MD 05/06/17 RAYMOND WOLF May 05, 2017 16:08 LISBET TAYLOR MD May 08, 2017 03:59
[2017-05-05] MEDS ORDERED: MIDAZOLAM 2 MG/2 ML (VERSED) VIAL IVP ONE (16:15)
[2017-05-05 16:51] LABS: BASOPHILS % (AUTO) 0 % (0-10); EOSINOPHILS # (AUTO) 0.1 10^3/uL (0.0-0.3); EOSINOPHILS % (AUTO) 1 % (0-10); LYMPHOCYTES # (AUTO) 1.6 X 10^3 (1.0-4.0); LYMPHOCYTES % (AUTO) 20 % (12-44); MEAN CORPUSCULAR HEMOGLOBIN 30 PG (25-34); MEAN CORPUSCULAR HGB CONC 35 G/DL (32-36); MEAN CORPUSCULAR VOLUME 87 FL (80-99); MEAN PLATELET VOLUME 10.3 FL (7.4-10.4); MONOCYTES # (AUTO) 0.6 X 10^3 (0.0-1.0); MONOCYTES % (AUTO) 8 % (0-12); NEUTROPHILS # (AUTO) 5.9 X 10^3 (1.8-7.8); NEUTROPHILS % (AUTO) 71 % (42-75); PLATELET COUNT 225 10^3/uL (130-400); RED BLOOD COUNT 3.78 10^6/uL (4.35-5.85); WHITE BLOOD COUNT 8.2 10^3/uL (4.3-11.0)
[2017-05-05 17:21] LABS: ALANINE AMINOTRANSFERASE 68 U/L (0-55); ALBUMIN 3.6 GM/DL (3.2-4.5); ALCOHOL < 10 MG/DL (<10); ANION GAP 7 MMOL/L (5-14); ASPARTATE AMINO TRANSFERASE 56 U/L (5-34); BILIRUBIN,TOTAL 0.3 MG/DL (0.1-1.0); BLOOD UREA NITROGEN 6 MG/DL (7-18); BUN/CREATININE RATIO 10; CALCIUM 8.3 MG/DL (8.5-10.1); CARBON DIOXIDE 23 MMOL/L (21-32); CHLORIDE 105 MMOL/L (98-107); CREATININE SERUM 0.63 MG/DL (0.60-1.30); GFR ESTIMATED > 60; GLUCOSE 82 MG/DL (70-105); POTASSIUM 3.4 MMOL/L (3.6-5.0); SALICYLATE < 5.0 MG/DL (5.0-20.0); SODIUM 135 MMOL/L (135-145); TOTAL PROTEIN 6.6 GM/DL (6.4-8.2)
[2017-05-05 17:22] LABS: ACETAMINOPHEN < 10 UG/ML (10-30)
--- NOTE | 2017-05-05 17:43 | Consultation ---
History of Present Illness History of Present Illness Patient Consulted On(charmaine/time) 05/05/17 16:01 Date Seen by Provider: May 05, 2017 Time Seen by Provider: 16:01 History of Present Illness Consult requested by Dr. Najera for laceration left wrist. Patient is a 18-year-old female who was brought in by EMS for attempted suicide. Patient was seen by Police Department trying to cut her left wrist in other areas. Patient reported getting cut on a when the 2 other emergency department personnel. Patient had arterial and venous bleeding previous to me arriving. Patient is unable to give any information at this time. She has received some Geodon and is becoming more sedated. Information obtained from chart review and emergency department personnel. Allergies and Home Medications Allergies Coded Allergies: No Known Drug Allergies (Unverified , 06/24/16) Home Medications Cephalexin 500 Mg Capsule, 500 MG PO QID, #28 Prescribed by: CAREY FOWLER on 02/15/17 1601 Docusate Sodium 100 Mg Capsule, 100 MG PO BID, #60 Prescribed by: SAMUEL DUMONT on 06/29/16 1720 Ibuprofen 800 Mg Tablet, 800 MG PO Q6HR, #60 Prescribed by: SAMUEL DUMONT on 06/29/16 1720 Mirtazapine 15 Mg Tablet, 15 MG PO HS, #0 Prescribed by: DAREN ARRIOLA on 06/29/16 0948 Oxycodone HCl/Acetaminophen 1 Each Tablet, 1-2 TAB PO Q4H PRN for PAIN, #60 Prescribed by: SAMUEL DUMONT on 06/29/16 1720 Risperidone 0.25 Mg Tablet, 0.25 MG PO BID, (Reported) Venlafaxine HCl 75 Mg Cap.er.24h, 75 MG PO DAILY, (Reported) Past Vmggjfd-Hckaon-Zvryyw Hx Patient Social History Alcohol Use: Denies Use Recreational Drug Use: Yes (METH, XANAX) Smoking Status: Current Everyday Smoker Type Used: Cigarettes 2nd Hand Smoke Exposure: Yes Recent Foreign Travel: No Contact w/Someone Who Travel: No Recent Infectious Disease Expo: No Recent Hopitalizations: No Immunizations Up To Date Tetanus Booster (TDap): Unknown Seasonal Allergies Seasonal Allergies: No Surgeries History of Surgeries: Yes (D&C) Surgeries: Section, Hysterectomy, Tonsillectomy Respiratory History of Respiratory Disorde: No Cardiovascular History of Cardiac Disorders: No Neurological History of Neurological Disord: No 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 System Hx 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: Yes (DUB, UTERINE PROLAPSE) Sexually Transmitted Disease: No Female 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: 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 Genitourinary Genitourinary Disorders: Bladder Infection, Kidney Stones Gastrointestinal History of Gastrointestinal Di: No Musculoskeletal History of Musculoskeletal Dis: No Endocrine History of Endocrine Disorders: No HEENT Loss of Vision: Bilateral Hearing Impairment: Denies Cancer History of Cancer: No Psychosocial History of Psychiatric Problem: Yes Behavioral Health Disorders: Sleep Difficulties, Anxiety, Suicide Attempts, Personality Disorder, Depression Integumentary History of Skin or Integumenta: No Blood Transfusions History of Blood Disorders: No Adverse Reaction to a Blood Tr: No (N/A) Reviewed Nursing Assessment Reviewed/Agree w Nursing PMH: Yes Family Medical History Significant Family History: No Pertinent Family Hx Family Medial History: No Family History of: Asthma Completed stroke Diabetes mellitus Hypertension Myocardial infarction Seizure disorder Review of Systems-General ROS-Unable to Obtain: patient with Geodon effects unable to answer review of systems. Physical Exam-General Problems Physical Exam Vital Signs Vital Sign - Last 12Hours 05/05/17 15:18 Temp 98.3 Pulse 118 Resp 20 B/P (MAP) 144/99 Pulse Ox 99 O2 Delivery Room Air Capillary Refill : Less Than 3 Seconds General Appearance: other (appears slightly sedated, at times stimulation she at times becomes uncontrollable) HEENT: other (eyes are nonicteric, multiple sore throats face without cellulitis no draining wounds) Neck: supple Respiratory: no respiratory distress, no accessory muscle use Cardiovascular: regular rate, rhythm Gastrointestinal: non tender, soft Rectal: deferred Back: normal inspection Extremities: other (patient with laceration to the left wrist anterior surface demonstrating through skin and through muscle belly. There is no active arterial bleeding at this time of my inspection. Distal pulses present which were distal to the laceration. Multiple other small linear cuts present to the left upper extremity. The right upper extremity with approximately 3 cm laceration irregular shaped) Neurologic/Psychiatric: other (patient times extremely excitable with stimulus almost combative, otherwise seems sedated from Geodon, difficult to assess neurological status of extremities due to patient condition) Skin: other (multiple lacerations variable size and depth to the left upper and right upper extremity) Lymphatic: no adenopathy Data Review Labs Laboratory Tests 05/05/17 16:40: White Blood Count 8.2, Red Blood Count 3.78L, Hemoglobin 11.3L, Hematocrit 33L, Mean Corpuscular Volume 87, Mean Corpuscular Hemoglobin 30, Mean Corpuscular Hemoglobin Concent 35, Red Cell Distribution Width 14.0, Platelet Count 225, Mean Platelet Volume 10.3, Neutrophils (%) (Auto) 71, Lymphocytes (%) (Auto) 20 , Monocytes (%) (Auto) 8, Eosinophils (%) (Auto) 1, Basophils (%) (Auto) 0, Neutrophils # (Auto) 5.9, Lymphocytes # (Auto) 1.6, Monocytes # (Auto) 0.6, Eosinophils # (Auto) 0.1, Basophils # (Auto) 0.0, Sodium Level 135, Potassium Level 3.4L, Chloride Level 105, Carbon Dioxide Level 23, Anion Gap 7, Blood Urea Nitrogen 6L, Creatinine 0.63, Estimat Glomerular Filtration Rate > 60, BUN/ Creatinine Ratio 10, Glucose Level 82, Calcium Level 8.3L, Total Bilirubin 0.3, Aspartate Amino Transf (AST/SGOT) 56H, Alanine Aminotransferase (ALT/SGPT) 68H, Alkaline Phosphatase 68, Total Protein 6.6, Albumin 3.6, Salicylates Level < 5.0L, Acetaminophen Level < 10L, Serum Alcohol < 10 Assessment/Plan Assessment/Plan Assessment/Plan Suicide attempt, laceration left wrist and laceration right forearm Patient was given Geodon and now more sedated. She needs the left wrist laceration and right forearm laceration to be repaired. Patient being admitted to Dr. Peraza. Neurovascular checks Laceration repairs: Patient's left forearm was prepped and draped in a sterile fashion 3 mL of 1 percent lidocaine was used anesthetize the area after the wound was irrigated with copious amounts of saline. There is no active arterial bleeding. Part of the muscle belly was partially cut the did not have complete transection. The skin was then closed using 4-0 nylon in a running stitch. The areas and wash and dried and pressure bandage applied. Pulses still present distal to the laceration both ulnar and radial artery. Overall length of repair 6 cm. The right forearm was then irrigated with copious amounts of irrigation. He was then prepped and draped. 2 mL of 1 percent lidocaine was used anesthetize the area radha were used to approximate the skin together which was more of a flap. No active bleeding present. The areas and wash and dry sterile bandage was applied. Total length approximately 3 cm. IVETTE DICKENS DO May 05, 2017 17:43
[2017-05-05] MEDS ORDERED: NS IV 1000 ML 1,000 ML IV SCH (18:00)
[2017-05-05] MEDS ORDERED: CATHETER FLUSH 10 ML SYR IV PRN (18:15)
[2017-05-05] MEDS ORDERED: LORazepam INJ 2 MG/ML (ATIVAN) VIAL IV PRN (18:15)
[2017-05-05] MEDS ORDERED: ONDANSETRON 4 MG/2 ML (SDV) Z0FRAN IV PRN (18:15)
[2017-05-05] MEDS ORDERED: HALOPERIDOL 5 MG/ML (HALDOL) AMP IV PRN (18:15)
[2017-05-05] MEDS ORDERED: ACETAMINOPHEN 500 MG TAB (TYLENOL) PO PRN (18:15)
[2017-05-05 18:22] VITALS: BP 109/80
[2017-05-05] MEDS: NS IV 1000 ML 1,000 ML IV SCH (18:46)
[2017-05-05 19:00] VITALS: BP 109/72
[2017-05-05 20:00] VITALS: BP 112/84
[2017-05-05 21:00] VITALS: BP 112/75
[2017-05-05 22:00] VITALS: BP 120/93
[2017-05-05 23:00] VITALS: BP 114/88
[2017-05-05 23:48] LABS: BILIRUBIN,URINE NEGATIVE (NEGATIVE); KETONES,URINE NEGATIVE (NEGATIVE); LEUKOCYTE ESTERASE ,URINE NEGATIVE (NEGATIVE); PH,URINE 7 (5-9); PROTEIN,URINE NEGATIVE (NEGATIVE); UROBILINOGEN,URINE NORMAL (NORMAL)
[2017-05-05 23:55] LABS: NITRITE,URINE NEGATIVE (NEGATIVE); SQUAMOUS EPITHELIAL CELL,UR 0-2 /HPF; WBC,URINE RARE /HPF
[2017-05-06] VITALS (17 sets, daily range): BP systolic 100–118; BP diastolic 64–99
[2017-05-06] MEDS: NS IV 1000 ML 1,000 ML IV SCH ×3 (00:55→09:34)
[2017-05-06 04:29] LABS: BASOPHILS % (AUTO) 0 % (0-10); EOSINOPHILS # (AUTO) 0.2 10^3/uL (0.0-0.3); EOSINOPHILS % (AUTO) 3 % (0-10); LYMPHOCYTES # (AUTO) 2.5 X 10^3 (1.0-4.0); LYMPHOCYTES % (AUTO) 41 % (12-44); MEAN CORPUSCULAR HEMOGLOBIN 30 PG (25-34); MEAN CORPUSCULAR HGB CONC 35 G/DL (32-36); MEAN CORPUSCULAR VOLUME 87 FL (80-99); MEAN PLATELET VOLUME 10.9 FL (7.4-10.4); MONOCYTES # (AUTO) 0.5 X 10^3 (0.0-1.0); MONOCYTES % (AUTO) 9 % (0-12); NEUTROPHILS # (AUTO) 2.8 X 10^3 (1.8-7.8); NEUTROPHILS % (AUTO) 46 % (42-75); PLATELET COUNT 212 10^3/uL (130-400); WHITE BLOOD COUNT 5.9 10^3/uL (4.3-11.0)
[2017-05-06 05:11] LABS: ALANINE AMINOTRANSFERASE 54 U/L (0-55); ALBUMIN 3.3 GM/DL (3.2-4.5); ANION GAP 8 MMOL/L (5-14); ASPARTATE AMINO TRANSFERASE 37 U/L (5-34); BILIRUBIN,TOTAL 0.4 MG/DL (0.1-1.0); BLOOD UREA NITROGEN 3 MG/DL (7-18); BUN/CREATININE RATIO 5; CARBON DIOXIDE 21 MMOL/L (21-32); CHLORIDE 109 MMOL/L (98-107); CREATININE SERUM 0.55 MG/DL (0.60-1.30); GFR ESTIMATED > 60; GLUCOSE 79 MG/DL (70-105); MAGNESIUM 1.5 MG/DL (1.8-2.4); PHOSPHORUS 2.6 MG/DL (2.3-4.7); POTASSIUM 3.4 MMOL/L (3.6-5.0); SODIUM 138 MMOL/L (135-145)
[2017-05-06] MEDS ORDERED: MAGNESIUM 1 GM/100 ML IVPB 100 ML IV SCH ×2 (06:00→06:30)
[2017-05-06] MEDS ORDERED: POTASSIUM CL 10MEQ/50ML IVPB 50 ML IV SCH (06:00)
[2017-05-06] MEDS ORDERED: KCL 20 MEQ TAB (K-DUR) PO SCH (06:00)
[2017-05-06] MEDS ORDERED: DIVA250T4 PO (08:02)
[2017-05-06] MEDS ORDERED: KCL 20 MEQ TAB (K-DUR) PO NR (09:00)
[2017-05-06] MEDS: MAGNESIUM 1 GM/100 ML IVPB 100 ML IV SCH ×2 (09:35→10:49)
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
[2017-05-06] MEDS ORDERED: CEPH250C PO (12:40)
--- NOTE | 2017-05-06 12:42 | Discharge Instructions ---
Discharge [facility] Discharge Medications New, Converted or Re-Newed RX: Transmitted to Pharmacy New Medications: Cephalexin (Cephalexin) 250 Mg Capsule 500 MG PO QID for 6 Days, #24 CAP Continued Medications: Divalproex Sodium (Divalproex Sodium) 250 Mg Tablet. 250 MG PO BID, TAB LAST FILLED #30 03-18-17 Patient Instructions Goal/Follow Up Appt: -PLEASE FOLLOW UP WITH YOUR MENTAL HEALTH PROVIDER AFTER BEING DISCHARGED FROM THE [facility]YCHIATRIC HOSPITAL -PLEASE CALL THE CLINIC AT [phone] TO MAKE AN APPOINTMENT WITH DR HOUGH REGARDING YOUR WRISTS. Patient Instructions: KEEP THE LACERATIONS CLEAN AND DRY. PLEASE HAVE THEM REEVALUATED IN 1 WEEK TO DETERMINE WHEN THE SUTURES NEED TO BE REMOVED. Return to The Hospital For: BLEEDING, SIGNS OF INFECTION INCLUDING FEVER, REDNESS, PUS, OR SWELLING Activity & Diet Discharge Diet: No Restrictions Activity as Tolerated: Yes Copy Copies To 1: SHARA HOUGH MD, JULIE A MD May 06, 2017 12:42 pm
[2017-05-06] MEDS ORDERED: CEPHALEXIN 250 MG (KEFLEX) CAP PO SCH (13:00)
--- NOTE | 2017-05-06 14:01 | Progress Note ---
Subjective Date Seen by Provider: May 06, 2017 Time Seen by Provider: 08:00 Subjective/Events-last exam Patient with sheets over head. Patient talks but minimally. She does follow some directions. She states she's able to move all the digits of the left hand but has too much pain to do so. She also states minimal feeling in all digits of the left hand. No other complaints at this time. Objective Exam Vital Signs Date Time Temp Pulse Resp B/P (MAP) Pulse Ox O2 Delivery O2 Flow Rate FiO2 05/06/17 13:00 96 18 114/84 100 Room Air 05/06/17 12:00 90 10 109/99 98 Room Air 05/06/17 11:00 90 14 103/70 100 Room Air 05/06/17 10:00 94 15 107/73 100 Room Air 05/06/17 09:00 106 10 102/72 100 Room Air 05/06/17 07:50 91 14 118/91 98 Room Air 05/06/17 07:21 100 05/06/17 07:00 98 110/76 97 Room Air 05/06/17 06:00 80 24 108/74 100 Room Air 05/06/17 05:00 86 12 103/75 100 Room Air 05/06/17 04:00 80 14 100/69 100 Room Air 05/06/17 04:00 98 Room Air 05/06/17 03:00 79 14 108/81 99 Room Air 05/06/17 02:00 89 14 106/83 99 Room Air 05/06/17 01:00 79 05/06/17 01:00 75 16 112/84 100 Room Air 05/06/17 00:00 98 Room Air 05/06/17 00:00 97.4 83 22 112/78 100 Room Air 05/05/17 23:00 80 11 114/88 100 Room Air 05/05/17 22:00 84 13 120/93 100 Room Air 05/05/17 21:00 80 12 112/75 100 Room Air 05/05/17 20:00 100 Room Air 05/05/17 20:00 82 12 112/84 100 Room Air 05/05/17 19:15 98.4 Room Air 05/05/17 19:00 82 05/05/17 19:00 98.7 96 12 109/72 100 Room Air 05/05/17 19:00 83 12 109/72 100 Room Air 05/05/17 18:30 100 Room Air 05/05/17 18:22 97.8 87 12 109/80 99 Room Air 05/05/17 17:55 98.3 92 12 100 Room Air 05/05/17 15:18 98.3 118 20 144/99 99 Room Air Capillary Refill : Less Than 3 Seconds General Appearance: No Apparent Distress (poor eye contact, minimal conversation) HEENT: Normal ENT Inspection Neck: Supple Respiratory: No Accessory Muscle Use, No Respiratory Distress Cardiovascular: Regular Rate, Rhythm Peripheral Pulses: 2+ Radial Pulses (R), 2+ Radial Pulses (L) Gastrointestinal: normal bowel sounds, non tender, soft, no organomegaly Extremity: Other (left hand with minimal swelling comparted to left, she does have sensation inact to all digits, she states it is all decreased. able to move all fingers but minimally likely secondary to pain, pulses distally intact the left radial is slightly diminished) Neurologic/Psychiatric: Alert Skin: Normal Color Results Lab Laboratory Tests 05/05/17 16:40: White Blood Count 8.2, Red Blood Count 3.78L, Hemoglobin 11.3L, Hematocrit 33L, Mean Corpuscular Volume 87, Mean Corpuscular Hemoglobin 30, Mean Corpuscular Hemoglobin Concent 35, Red Cell Distribution Width 14.0, Platelet Count 225, Mean Platelet Volume 10.3, Neutrophils (%) (Auto) 71, Lymphocytes (%) (Auto) 20 , Monocytes (%) (Auto) 8, Eosinophils (%) (Auto) 1, Basophils (%) (Auto) 0, Neutrophils # (Auto) 5.9, Lymphocytes # (Auto) 1.6, Monocytes # (Auto) 0.6, Eosinophils # (Auto) 0.1, Basophils # (Auto) 0.0, Sodium Level 135, Potassium Level 3.4L, Chloride Level 105, Carbon Dioxide Level 23, Anion Gap 7, Blood Urea Nitrogen 6L, Creatinine 0.63, Estimat Glomerular Filtration Rate > 60, BUN/ Creatinine Ratio 10, Glucose Level 82, Calcium Level 8.3L, Total Bilirubin 0.3, Aspartate Amino Transf (AST/SGOT) 56H, Alanine Aminotransferase (ALT/SGPT) 68H, Alkaline Phosphatase 68, Total Protein 6.6, Albumin 3.6, TSH [place] Testing 1.08, Salicylates Level < 5.0L, Acetaminophen Level < 10L, Serum Alcohol < 10 05/05/17 21:15: Urine Color YELLOW, Urine Clarity CLEAR, Urine pH 7, Urine Specific [place] 1.010L, Urine Protein NEGATIVE, Urine Glucose (UA) NEGATIVE, Urine Ketones NEGATIVE, Urine Nitrite NEGATIVE, Urine Bilirubin NEGATIVE, Urine Urobilinogen NORMAL, Urine Leukocyte Esterase NEGATIVE, Urine RBC (Auto) NEGATIVE, Urine RBC NONE, Urine WBC RARE, Urine Squamous Epithelial Cells 0-2, Urine Crystals NONE, Urine Bacteria TRACE, Urine Casts NONE, Urine Mucus NEGATIVE, Urine Culture Indicated NO, Urine Opiates Screen NEGATIVE, Urine Oxycodone Screen NEGATIVE, Urine Methadone Screen NEGATIVE, Urine Propoxyphene Screen NEGATIVE, Urine Barbiturates Screen NEGATIVE, Ur Tricyclic Antidepressants Screen NEGATIVE, Urine Phencyclidine Screen NEGATIVE, Urine Amphetamines Screen POSITIVEH, Urine Methamphetamines Screen NEGATIVE, Urine Benzodiazepines Screen POSITIVEH, Urine Cocaine Screen NEGATIVE, Urine Cannabinoids Screen NEGATIVE 05/06/17 04:15: White Blood Count 5.9, Red Blood Count 3.40L, Hemoglobin 10.2L, Hematocrit 30L, Mean Corpuscular Volume 87, Mean Corpuscular Hemoglobin 30, Mean Corpuscular Hemoglobin Concent 35, Red Cell Distribution Width 14.0, Platelet Count 212, Mean Platelet Volume 10.9H, Neutrophils (%) (Auto) 46, Lymphocytes (%) (Auto) 41 , Monocytes (%) (Auto) 9, Eosinophils (%) (Auto) 3, Basophils (%) (Auto) 0, Neutrophils # (Auto) 2.8, Lymphocytes # (Auto) 2.5, Monocytes # (Auto) 0.5, Eosinophils # (Auto) 0.2, Basophils # (Auto) 0.0, Sodium Level 138, Potassium Level 3.4L, Chloride Level 109H, Carbon Dioxide Level 21, Anion Gap 8, Blood Urea Nitrogen 3L, Creatinine 0.55L, Estimat Glomerular Filtration Rate > 60, BUN /Creatinine Ratio 5, Glucose Level 79, Calcium Level 8.0L, Total Bilirubin 0.4, Aspartate Amino Transf (AST/SGOT) 37H, Alanine Aminotransferase (ALT/SGPT) 54, Alkaline Phosphatase 67, Total Protein 6.0L, Albumin 3.3, Phosphorus Level 2.6, Magnesium Level 1.5L Assessment/Plan Assessment/Plan Assessment/Plan Suicide attempt, laceration left wrist and laceration right forearm laceration left wrist and right forearm. no further surgical intervention at this time. medical management IVETTE DICKENS DO May 06, 2017 14:01
[2017-05-06] MEDS ORDERED: ACET325T38 PO (16:02)
== END 2017-05-06 17:05 | disposition home or self-care (01) ==
LOC: EDUNIT# 15:18 → ER 15:20 → ICU 16:15
PROVIDERS: ADMIT Pediatrics; ATTEND Pediatrics
DX: S51.811A Laceration without foreign body of right forearm, initial encounter (principal); S51.812A Laceration without foreign body of left forearm, initial encounter; F33.2 Major depressive disorder, recurrent severe without psychotic features; F12.10 Cannabis abuse, uncomplicated; F17.210 Nicotine dependence, cigarettes, uncomplicated; G40.909 Epilepsy, unspecified, not intractable, without status epilepticus; X78.1XXA Intentional self-harm by knife, initial encounter; Y92.009 Unspecified place in unspecified non-institutional (private) residence as the place of occurrence of the external cause; Y99.8 Other external cause status
CPT/HCPCS: 12002; 36415; 80053; 80306; 80320; 80329; 81000; 83735; 84100; 84443; 85025; 93005; 96372; 96374; 96375; G0378

== ENCOUNTER 2019-02-20 14:01 | Emergency (ER) | payer MEDICAID ==
[~2019-02-20] VITALS: Ht 152.4 cm; Wt 46.7 kg
[~2019-02-20 14:01] MED LIST changes: +ACET325T38 PO; +CEPH250C PO; +DIVA-74 PO; -WATER (STERILE) FOR INJECTION 20 ML ONE; -ZIPRASIDONE 20 MG INJ (GEODON) VIAL IM ONE
[2019-02-20 14:41] LABS: BACTERIA,URINE MODERATE /HPF; BILIRUBIN,URINE NEGATIVE (NEGATIVE); CLARITY,URINE SLIGHTLY CLOUDY; COLOR,URINE YELLOW; GLUCOSE, URINE (UA) NEGATIVE (NEGATIVE); KETONES,URINE NEGATIVE (NEGATIVE); LEUKOCYTE ESTERASE ,URINE 2+ (NEGATIVE); NITRITE,URINE NEGATIVE (NEGATIVE); PH,URINE 7 (5-9); PROTEIN,URINE 2+ (NEGATIVE); RBC,URINE 0-2 /HPF; UROBILINOGEN,URINE NORMAL (NORMAL); WBC,URINE 50-100 /HPF
[2019-02-20 14:42] LABS: AMORPHOUS SEDIMENT,UR RARE AMOR PHOSPHATE /LPF
[2019-02-20] MEDS ORDERED: KETOROLAC 30 MG/ML VIAL IM STA (14:53)
[2019-02-20] MEDS ORDERED: KETOROLAC 30 MG/ML VIAL IVP STA (14:59)
[2019-02-20] MEDS ORDERED: NS IV 1000 ML 1,000 ML IV ONE (14:59)
--- NOTE | 2019-02-20 14:59 | ED GU-Female ---
General Chief Complaint: - Urinary Stated Complaint: ABD PAIN Nursing Triage Note: PT ARRIVES WITH C/O LOWER BACK PAIN FOR 3 DAYS. PT STATES HAVING BLOOD TINGED URINE, FREQUENCY, URGENCY AND DYSURIA. PT STATES SHE MAY HAVE HAD A FEVER YESTERDAY BUT DID NOT HAVE A WAY TO CHECK THE FEVER. PT STATES HISTORY OF UTI. PT DENEIS N/V/D. PT STATES TAKING NAPROXEN YESTERDAY WITHOUT RELIEF. PT AMBULATES WITHOUT DIFFICULTY. Nursing Sepsis Screen: No Definite Risk Source: patient Exam Limitations: no limitations History of Present Illness Date Seen by Provider: Feb 20, 2019 Time Seen by Provider: 14:28 Initial Comments Here with report of 3 days of low back pain and difficulty with urination. Reports blood tinged urine. Denies vaginal discharge. Has had hysterectomy. Does have history of urinary tract infections and states it feels like that. Has been taking naproxen yesterday and that did not help. Overall very tender and now moving into the low back and flanks. Does admit to methamphetamine drug use by smoking. Does have history of IV drug use. She would like to not be on drugs. Timing/Duration: getting worse, other (3 days) Severity/Quality: moderate, severe, aching Location: suprapubic Radiation: right flank, left flank Activities at Onset: none Modifying Factors: Improves With Resting; Worsens With Urinating Associated Symptoms: dysuria, lower back pain Allergies and Home Medications Allergies Coded Allergies: No Known Drug Allergies (Unverified , 06/24/16) Home Medications Acetaminophen 325 Mg Tablet, 650 MG PO Q6H Prescribed by: AMISHA HUGO on 05/06/17 1602 Cephalexin 250 Mg Capsule, 500 MG PO QID Prescribed by: OLEGARIO WARD on 05/06/17 1240 Divalproex Sodium 250 Mg Tablet.dr, 250 MG PO BID, (Reported) LAST FILLED #30 03-18-17 Patient Home Medication List Home Medication List Reviewed: Yes Review of Systems Review of Systems Constitutional: see HPI; No chills, No fever EENTM: no symptoms reported Respiratory: no symptoms reported Cardiovascular: No chest pain, No edema Gastrointestinal: abdominal pain; No nausea, No vomiting Genitourinary: dysuria, frequency, flank pain, hematuria Musculoskeletal: no symptoms reported Skin: lesions (multiple lesions to all skin surfaces that appear like bug bites or picking lesions.) Psychiatric/Neurological: No Symptoms Reported All Other Systemes Reviewed Negative Unless Noted: Yes Past Micfqht-Fjvqmt-Kjsqgf Hx Past Med/Social Hx: Reviewed Nursing Past Med/Soc Hx Patient Social History Alcohol Use: Denies Use Recreational Drug Use: Yes (METH, XANAX) Type Used: Cigarettes 2nd Hand Smoke Exposure: Yes Recent Foreign Travel: No Contact w/Someone Who Travel: No Recent Infectious Disease Expo: No Recent Hopitalizations: No Physical Abuse: No Sexual Abuse: No Mistreated: No Fear: No Immunizations Up To Date Tetanus Booster (TDap): Unknown Seasonal Allergies Seasonal Allergies: No Past Medical History Surgeries: Yes (D&C) Section, Hysterectomy, Tonsillectomy Respiratory: No Cardiac: No Neurological: No 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: Yes (DUB, UTERINE PROLAPSE) Female 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 Sexually Transmitted Disease: No Bladder Infection, Kidney Stones Gastrointestinal: No Musculoskeletal: No Endocrine: No HEENT: No Loss of Vision: Bilateral Hearing Impairment: Denies Cancer: No Psychosocial: Yes Sleep Difficulties, Anxiety, Suicide Attempts, Personality Disorder, Depression Integumentary: No Blood Disorders: No Adverse Reaction/Blood Tranf: No (N/A) Family Medical History Reviewed Nursing Family Hx No Family History of: Asthma Completed stroke Diabetes mellitus Hypertension Myocardial infarction Seizure disorder No Pertinent Family Hx Physical Exam Vital Signs Vital Signs - First Documented 02/20/19 14:09 Temp 98.9 Pulse 105 Resp 18 B/P (MAP) 108/69 (82) Pulse Ox 96 O2 Delivery Room Air Capillary Refill : Less Than 3 Seconds Height, Weight, BMI Height: 5'0.00" Weight: 103lbs. 0.0oz. [id number]; 20.1 BMI Method:Stated General Appearance: WD/WN, no apparent distress HEENT: PERRL/EOMI, pharynx normal Neck: full range of motion, supple Cardiovascular: regular rate, rhythm, no murmur Respiratory: lungs clear, normal breath sounds Gastrointestinal: non tender, soft Back: normal inspection, no CVA tenderness, no vertebral tenderness Extremities: non-tender, normal inspection Neurologic/Psychiatric: alert, oriented x 3 Skin: normal color, warm/dry Progress/Results/Core Measures Suspected Sepsis Recent Fever Within 48 Hours: No Infection Criteria Present: Suspected New Infection New/Unexplained Altered Menta: No Sepsis Screen: No Definite Risk SIRS Temperature:98.9 Pulse: 105 Respiratory Rate: 18 Laboratory Tests 02/20/19 15:01: White Blood Count 11.2H Blood Pressure 108 /69 Mean: 82 Laboratory Tests 02/20/19 15:01: Creatinine 0.71, Platelet Count 331, Total Bilirubin 0.3 Results/Orders Lab Results Laboratory Tests Test 02/20/19 14:18 02/20/19 15:01 Range/Units Urine Color YELLOW Urine Clarity SLIGHTLY CLOUDY Urine pH 7 5-9 Urine Specific [place] 1.010 L 1.016-1.022 Urine Protein 2+ H NEGATIVE Urine Glucose (UA) NEGATIVE NEGATIVE Urine Ketones NEGATIVE NEGATIVE Urine Nitrite NEGATIVE NEGATIVE Urine Bilirubin NEGATIVE NEGATIVE Urine Urobilinogen NORMAL NORMAL MG/DL Urine Leukocyte Esterase 2+ H NEGATIVE Urine RBC (Auto) NEGATIVE NEGATIVE Urine RBC 0-2 /HPF Urine WBC 50-100 H /HPF Urine Squamous Epithelial Cells 5-10 /HPF Urine Crystals PRESENT H /LPF Urine Amorphous Sediment RARE AUGUSTINE PHOSPHATE H /LPF Urine Bacteria MODERATE H /HPF Urine Casts NONE /LPF Urine Mucus NEGATIVE /LPF Urine Culture Indicated YES White Blood Count 11.2 H 4.3-11.0 10^3/uL Red Blood Count 4.49 4.35-5.85 10^6/uL Hemoglobin 13.8 11.5-16.0 G/DL Hematocrit 40 35-52 % Mean Corpuscular Volume 89 80-99 FL Mean Corpuscular Hemoglobin 31 25-34 PG Mean Corpuscular Hemoglobin Concent 35 32-36 G/DL Red Cell Distribution Width 12.6 10.0-14.5 % Platelet Count 331 130-400 10^3/uL Mean Platelet Volume 9.9 7.4-10.4 FL Neutrophils (%) (Auto) 67 42-75 % Lymphocytes (%) (Auto) 21 12-44 % Monocytes (%) (Auto) 10 0-12 % Eosinophils (%) (Auto) 2 0-10 % Basophils (%) (Auto) 0 0-10 % Neutrophils # (Auto) 7.5 1.8-7.8 X 10^3 Lymphocytes # (Auto) 2.4 1.0-4.0 X 10^3 Monocytes # (Auto) 1.1 H 0.0-1.0 X 10^3 Eosinophils # (Auto) 0.2 0.0-0.3 10^3/uL Basophils # (Auto) 0.0 0.0-0.1 10^3/uL Sodium Level 139 135-145 MMOL/L Potassium Level 3.6 3.6-5.0 MMOL/L Chloride Level 105 98-107 MMOL/L Carbon Dioxide Level 24 21-32 MMOL/L Anion Gap 10 5-14 MMOL/L Blood Urea Nitrogen 9 7-18 MG/DL Creatinine 0.71 0.60-1.30 MG/DL Estimat Glomerular Filtration Rate > 60 BUN/Creatinine Ratio 13 Glucose Level 90 70-105 MG/DL Calcium Level 9.9 8.5-10.1 MG/DL Corrected Calcium 9.7 8.5-10.1 MG/DL Total Bilirubin 0.3 0.1-1.0 MG/DL Aspartate Amino Transf (AST/SGOT) 18 5-34 U/L Alanine Aminotransferase (ALT/SGPT) 26 0-55 U/L Alkaline Phosphatase 95 40-136 U/L C-Reactive Protein High Sensitivity 4.25 H 0.00-0.50 MG/DL Total Protein 7.6 6.4-8.2 GM/DL Albumin 4.2 3.2-4.5 GM/DL My Orders Orders - LISBET TAYLOR MD Ua Culture If Indicated (02/20/19 14:28) Cbc With Automated Diff (02/20/19 14:40) Comprehensive Metabolic Panel (02/20/19 14:40) Hs C Reactive Protein (02/20/19 14:40) Urine Culture (02/20/19 14:18) Ketorolac Injection (Toradol Injection) (02/20/19 14:53) Ed Iv/Invasive Line Start (02/20/19 14:59) Ns Iv 1000 Ml (Sodium Chloride 0.9%) (02/20/19 14:59) Ketorolac Injection (Toradol Injection) (02/20/19 14:59) Ceftriaxone For Iv Use (Rocephin For I (02/20/19 15:30) Medications Given in ED Current Medications Medications Dose Ordered Sig/Dc Route Start Time Stop Time Status Last Admin Dose Admin Ceftriaxone Sodium 1000 mg/ Sterile Water 10 ml @ 200 mls/hr ONCE ONCE IV 02/20/19 15:30 02/20/19 15:32 DC 02/20/19 15:34 200 MLS/HR Sodium Chloride 1,000 ml @ 0 mls/hr Q0M ONCE IV 02/20/19 14:59 02/20/19 15:00 DC 02/20/19 15:10 1,000 MLS/HR Vital Signs/I&O 02/20/19 14:09 Temp 98.9 Pulse 105 Resp 18 B/P (MAP) 108/69 (82) Pulse Ox 96 O2 Delivery Room Air Capillary Refill : Less Than 3 Seconds Blood Pressure Mean: 82 Progress Note : Progress Note Seen and evaluated. IV, labs, UA, normal saline 1 L bolus and Toradol 30 mg IV ordered. Monitor patient. 1613: Overall doing better. Did receive Rocephin 1 g IV. Labs indicate UTI with mild systemic involvement. She feels much better overall. We will initiate outpatient antibiotics and have discussed return precautions. Discharged home with return precautions. Patient and family verbalize understanding instructions and agreement with plan. Departure Impression Primary Impression: Urinary tract infection Qualified Codes: N30.00 - Acute cystitis without hematuria Disposition: HOME, SELF-CARE Condition: Improved Departure-Patient Inst. Decision time for Depature: 16:15 Referrals: [facility] (PCP/Family) Primary Care Physician Patient Instructions: Urinary Tract Infection, Adult (DC) Add. Discharge Instructions: All discharge instructions reviewed with patient and/or family. Voiced understanding. Drink plenty of fluids. Take medications as directed. You may continue Naprosyn as previously prescribed for directed. You may also take Tylenol/acetaminophen per package directions. Return for worse pain, fever, vomiting, weakness, breathing problems or other concerns as needed. Follow-up with your in a few days for recheck. Considers options discussed with regard to drug abuse problems and help. Scripts Nitrofurantoin Macrocrystal (Nitrofurantoin) 100 Mg Capsule 100 MG PO BID, #14 CAP 0 Refills Prov: LISBET TAYLOR MD 02/20/19 LISBET TAYLOR MD Feb 20, 2019 14:59
[2019-02-20 15:04] LABS: BASOPHILS % (AUTO) 0 % (0-10); EOSINOPHILS # (AUTO) 0.2 10^3/uL (0.0-0.3); EOSINOPHILS % (AUTO) 2 % (0-10); HEMATOCRIT 40 % (35-52); HEMOGLOBIN 13.8 G/DL (11.5-16.0); LYMPHOCYTES # (AUTO) 2.4 X 10^3 (1.0-4.0); LYMPHOCYTES % (AUTO) 21 % (12-44); MEAN CORPUSCULAR HEMOGLOBIN 31 PG (25-34); MEAN CORPUSCULAR HGB CONC 35 G/DL (32-36); MEAN CORPUSCULAR VOLUME 89 FL (80-99); MEAN PLATELET VOLUME 9.9 FL (7.4-10.4); MONOCYTES # (AUTO) 1.1 X 10^3 (0.0-1.0); MONOCYTES % (AUTO) 10 % (0-12); NEUTROPHILS # (AUTO) 7.5 X 10^3 (1.8-7.8); NEUTROPHILS % (AUTO) 67 % (42-75); PLATELET COUNT 331 10^3/uL (130-400); RED CELL DISTRIBUTION WIDTH 12.6 % (10.0-14.5); WHITE BLOOD COUNT 11.2 10^3/uL (4.3-11.0)
[2019-02-20 15:23] LABS: ALANINE AMINOTRANSFERASE 26 U/L (0-55); ALBUMIN 4.2 GM/DL (3.2-4.5); ALKALINE PHOSPHATASE 95 U/L (40-136); BILIRUBIN,TOTAL 0.3 MG/DL (0.1-1.0); BUN/CREATININE RATIO 13; CALCIUM 9.9 MG/DL (8.5-10.1); CARBON DIOXIDE 24 MMOL/L (21-32); CHLORIDE 105 MMOL/L (98-107); CREATININE SERUM 0.71 MG/DL (0.60-1.30); GFR ESTIMATED > 60; GLUCOSE 90 MG/DL (70-105); POTASSIUM 3.6 MMOL/L (3.6-5.0); SODIUM 139 MMOL/L (135-145); TOTAL PROTEIN 7.6 GM/DL (6.4-8.2)
[2019-02-20] MEDS ORDERED: cefTRIAXone FOR IV USE 1,000 MG in WATER (STERILE) FOR INJECTION 10 ML IV ONE (15:30)
[2019-02-20] MEDS ORDERED: NITR100C PO (16:17)
[2019-02-20 16:23] VITALS: BP 142/76
== END 2019-02-20 16:23 | disposition home or self-care (01) ==
LOC: EDUNIT# 14:01 → ER 14:02
DX: N39.0 Urinary tract infection, site not specified (principal); F15.10 Other stimulant abuse, uncomplicated; F19.10 Other psychoactive substance abuse, uncomplicated; F41.9 Anxiety disorder, unspecified; F32.9 Major depressive disorder, single episode, unspecified; F60.9 Personality disorder, unspecified; Z90.710 Acquired absence of both cervix and uterus; Z90.89 Acquired absence of other organs
CPT/HCPCS: 36415; 80053; 81000; 85025; 86141; 87077; 87088; 96361; 96374; 96375

== ENCOUNTER 2019-10-28 00:19 | Inpatient (IN) | payer MEDICAID ==
[~2019-10-28] VITALS: Ht 152 cm; Wt 51.8 kg
[2019-10-28] VITALS (7 sets, daily range): BP systolic 79–115; BP diastolic 47–93
[~2019-10-28 00:19] MED LIST changes: +NITR100C PO
[2019-10-28 01:03] LABS: BILIRUBIN,URINE NEGATIVE (NEGATIVE); CLARITY,URINE CLEAR; COLOR,URINE YELLOW; GLUCOSE, URINE (UA) NEGATIVE (NEGATIVE); KETONES,URINE NEGATIVE (NEGATIVE); LEUKOCYTE ESTERASE ,URINE 3+ (NEGATIVE); NITRITE,URINE POSITIVE (NEGATIVE); PROTEIN,URINE TRACE (NEGATIVE)
[2019-10-28] MEDS ORDERED: NS IV 1000 ML 1,000 ML IV SCH (01:07)
[2019-10-28] MEDS ORDERED: LACTATED RINGERS 0 ML IV ONE (01:09)
[2019-10-28] MEDS ORDERED: KETOROLAC 30 MG/ML VIAL IVP ONE (01:15)
[2019-10-28 01:21] LABS: BASOPHILS % (AUTO) 0 % (0-10); EOSINOPHILS # (AUTO) 0.2 10^3/uL (0.0-0.3); EOSINOPHILS % (AUTO) 2 % (0-10); HEMATOCRIT 43 % (35-52); HEMOGLOBIN 14.7 G/DL (11.5-16.0); LYMPHOCYTES # (AUTO) 1.6 X 10^3 (1.0-4.0); LYMPHOCYTES % (AUTO) 12 % (12-44); MEAN CORPUSCULAR HEMOGLOBIN 31 PG (25-34); MEAN CORPUSCULAR HGB CONC 35 G/DL (32-36); MEAN CORPUSCULAR VOLUME 89 FL (80-99); MEAN PLATELET VOLUME 10.2 FL (7.4-10.4); MONOCYTES # (AUTO) 0.3 X 10^3 (0.0-1.0); MONOCYTES % (AUTO) 2 % (0-12); NEUTROPHILS # (AUTO) 10.8 X 10^3 (1.8-7.8); NEUTROPHILS % (AUTO) 84 % (42-75); PLATELET COUNT 240 10^3/uL (130-400); RED CELL DISTRIBUTION WIDTH 12.4 % (10.0-14.5)
[2019-10-28 01:27] LABS: BACTERIA,URINE FEW /HPF; WBC,URINE 50-100 /HPF
[2019-10-28 01:28] LABS: AMORPHOUS SEDIMENT,UR MOD AMOR PHOSPHATE /LPF; SQUAMOUS EPITHELIAL CELL,UR 0-2 /HPF
[2019-10-28 01:34] LABS: ALANINE AMINOTRANSFERASE 20 U/L (0-55); ALBUMIN 4.6 GM/DL (3.2-4.5); ALKALINE PHOSPHATASE 88 U/L (40-136); BILIRUBIN,TOTAL 0.5 MG/DL (0.1-1.0); BUN/CREATININE RATIO 16; CALCIUM 9.7 MG/DL (8.5-10.1); CARBON DIOXIDE 23 MMOL/L (21-32); CHLORIDE 101 MMOL/L (98-107); CREATININE SERUM 0.82 MG/DL (0.60-1.30); GFR ESTIMATED > 60; GLUCOSE 80 MG/DL (70-105); POTASSIUM 4.2 MMOL/L (3.6-5.0); SODIUM 137 MMOL/L (135-145); TOTAL PROTEIN 8.2 GM/DL (6.4-8.2)
[2019-10-28] MEDS ORDERED: cefTRIAXone FOR IV USE 1,000 MG in WATER (STERILE) FOR INJECTION 10 ML IV ONE (02:00)
[2019-10-28] MEDS ORDERED: NS IV 1000 ML 1,000 ML IV ONE (03:18)
--- NOTE | 2019-10-28 04:19 | ED General ---
General Chief Complaint: - Urinary Stated Complaint: POSS KIDNEY INFECTION Nursing Triage Note: PT PRESENTS TO THE EDC/O PAIN WITH URINATION AND BURNING SINCE LAST NIGHT THAT HAS PROGRESSED TO L FLANK PAIN. PT DENIES FEVER, STATES SHE HAS FELT CHILLS Nursing Sepsis Screen: No Definite Risk Source of Information: Patient Exam Limitations: No Limitations History of Present Illness Date Seen by Provider: Oct 28, 2019 Time Seen by Provider: 00:42 Initial Comments This 28-year-old woman presents to the emergency room with complaints of dysuria that started 2 days ago. She then developed left lower back pain and flank pain yesterday. The flank and back pain was of gradual onset. She denies any hematuria. She is afebrile. She believes she has a urinary tract infection. Patient admits to injecting methamphetamines with last use a few weeks ago. Allergies and Home Medications Allergies Coded Allergies: No Known Drug Allergies (Unverified , 06/24/16) Home Medications Acetaminophen 325 Mg Tablet, 650 MG PO Q6H Prescribed by: AMISHA HUGO on 05/06/17 1602 Cephalexin 250 Mg Capsule, 500 MG PO QID Prescribed by: OLEGARIO WARD on 05/06/17 1240 Divalproex Sodium 250 Mg Tablet.dr, 250 MG PO BID, (Reported) LAST FILLED #30 03-18-17 Nitrofurantoin Macrocrystal 100 Mg Capsule, 100 MG PO BID Prescribed by: LISBET TAYLOR on 02/20/19 1617 Patient Home Medication List Home Medication List Reviewed: Yes Review of Systems Review of Systems Constitutional: chills EENTM: no symptoms reported Respiratory: no symptoms reported Cardiovascular: no symptoms reported Gastrointestinal: see HPI Genitourinary: see HPI : No Musculoskeletal: no symptoms reported Skin: no symptoms reported Psychiatric/Neurological: No Symptoms Reported Hematologic/Lymphatic: No Symptoms Reported Immunological/Allergic: no symptoms reported Past Gkatxab-Eeymrx-Cikghv Hx Past Med/Social Hx: Reviewed Nursing Past Med/Soc Hx Patient Social History Alcohol Use: Denies Use Recreational Drug Use: Yes (METH, XANAX) Smoking Status: Current Everyday Smoker Type Used: Cigarettes 2nd Hand Smoke Exposure: Yes Recent Foreign Travel: No Contact w/Someone Who Travel: No Recent Infectious Disease Expo: No Recent Hopitalizations: No Immunizations Up To Date Tetanus Booster (TDap): Unknown PED Vaccines UTD: Yes Seasonal Allergies Seasonal Allergies: No Past Medical History Surgeries: Yes (D&C) Section, Hysterectomy, Tonsillectomy Respiratory: No Cardiac: No Neurological: No : No 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: Yes (DUB, UTERINE PROLAPSE) 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 Sexually Transmitted Disease: No Genitourinary: Yes Bladder Infection, Kidney Stones Gastrointestinal: No Musculoskeletal: No Endocrine: No HEENT: No Loss of Vision: Bilateral Hearing Impairment: Denies Cancer: No Psychosocial: Yes Sleep Difficulties, Anxiety, Suicide Attempts, Personality Disorder, Depression Integumentary: No Blood Disorders: No Adverse Reaction/Blood Tranf: No (N/A) Family Medical History No Family History of: Asthma Completed stroke Diabetes mellitus Hypertension Myocardial infarction Seizure disorder No Pertinent Family Hx Physical Exam-Suspected Sepsis Physical Exam Vital Signs Vital Signs - First Documented 10/28/19 00:41 Temp 37.0 Pulse 115 Resp 20 B/P (MAP) 104/74 (84) Pulse Ox 100 O2 Delivery Room Air Capillary Refill : Less Than 3 Seconds Blood Pressure Mean: 84 Height, Weight, BMI Height: 5'0.00" Weight: 103lbs. 0.0oz. 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 Norm as Tested Skin: normal color, warm/dry Focused Exam Lactate Level 10/28/19 02:15: Lactic Acid Level 0.91 Lactic Acid Level Progress/Results/Core Measures Suspected Sepsis Recent Fever Within 48 Hours: No Infection Criteria Present: None New/Unexplained Altered Menta: No Sepsis Screen: No Definite Risk SIRS Temperature: Pulse: 115 Respiratory Rate: 20 Laboratory Tests 10/28/19 01:06: White Blood Count 13.0H Blood Pressure 104 /74 Mean: 84 10/28/19 02:15: Lactic Acid Level 0.91 Laboratory Tests 10/28/19 01:06: Creatinine 0.82, Platelet Count 240, Total Bilirubin 0.5 Results/Orders Lab Results Laboratory Tests Test 10/28/19 00:53 10/28/19 01:06 10/28/19 02:15 Range/Units Urine Color YELLOW Urine Clarity CLEAR Urine pH 7.0 5-9 Urine Specific [place] 1.010 L 1.016-1.022 Urine Protein TRACE H NEGATIVE Urine Glucose (UA) NEGATIVE NEGATIVE Urine Ketones NEGATIVE NEGATIVE Urine Nitrite POSITIVE H NEGATIVE Urine Bilirubin NEGATIVE NEGATIVE Urine Urobilinogen 0.2 < = 1.0 MG/DL Urine Leukocyte Esterase 3+ H NEGATIVE Urine RBC (Auto) 1+ H NEGATIVE Urine RBC 2-5 H /HPF Urine WBC 50-100 H /HPF Urine Squamous Epithelial Cells 0-2 /HPF Urine Crystals PRESENT H /LPF Urine Amorphous Sediment MOD AUGUSTINE PHOSPHATE H /LPF Urine Bacteria FEW H /HPF Urine Casts NONE /LPF Urine Mucus NEGATIVE /LPF Urine Culture Indicated YES White Blood Count 13.0 H 4.3-11.0 10^3/uL Red Blood Count 4.79 4.35-5.85 10^6/uL Hemoglobin 14.7 11.5-16.0 G/DL Hematocrit 43 35-52 % Mean Corpuscular Volume 89 80-99 FL Mean Corpuscular Hemoglobin 31 25-34 PG Mean Corpuscular Hemoglobin Concent 35 32-36 G/DL Red Cell Distribution Width 12.4 10.0-14.5 % Platelet Count 240 130-400 10^3/uL Mean Platelet Volume 10.2 7.4-10.4 FL Neutrophils (%) (Auto) 84 H 42-75 % Lymphocytes (%) (Auto) 12 12-44 % Monocytes (%) (Auto) 2 0-12 % Eosinophils (%) (Auto) 2 0-10 % Basophils (%) (Auto) 0 0-10 % Neutrophils # (Auto) 10.8 H 1.8-7.8 X 10^3 Lymphocytes # (Auto) 1.6 1.0-4.0 X 10^3 Monocytes # (Auto) 0.3 0.0-1.0 X 10^3 Eosinophils # (Auto) 0.2 0.0-0.3 10^3/uL Basophils # (Auto) 0.0 0.0-0.1 10^3/uL Sodium Level 137 135-145 MMOL/L Potassium Level 4.2 3.6-5.0 MMOL/L Chloride Level 101 98-107 MMOL/L Carbon Dioxide Level 23 21-32 MMOL/L Anion Gap 13 5-14 MMOL/L Blood Urea Nitrogen 13 7-18 MG/DL Creatinine 0.82 0.60-1.30 MG/DL Estimat Glomerular Filtration Rate > 60 BUN/Creatinine Ratio 16 Glucose Level 80 70-105 MG/DL Calcium Level 9.7 8.5-10.1 MG/DL Corrected Calcium 8.5-10.1 MG/DL Total Bilirubin 0.5 0.1-1.0 MG/DL Aspartate Amino Transf (AST/SGOT) 16 5-34 U/L Alanine Aminotransferase (ALT/SGPT) 20 0-55 U/L Alkaline Phosphatase 88 40-136 U/L C-Reactive Protein High Sensitivity 5.41 H 0.00-0.50 MG/DL Total Protein 8.2 6.4-8.2 GM/DL Albumin 4.6 H 3.2-4.5 GM/DL Serum Test, Qualitative NEGATIVE NEGATIVE Lactic Acid Level 0.91 0.50-2.00 MMOL/L My Orders Orders - CAREY GERMAN MD Urine Bedside (10/28/19 00:42) Ua Culture If Indicated (10/28/19 00:42) Cbc With Automated Diff (10/28/19 01:07) Comprehensive Metabolic Panel (10/28/19 01:07) Hs C Reactive Protein (10/28/19 01:07) Ed Iv/Invasive Line Start (10/28/19 01:07) Ns Iv 1000 Ml (Sodium Chloride 0.9%) (10/28/19 01:07) Hcg,Qualitative Serum (10/28/19 01:07) Ketorolac Injection (Toradol Injection) (10/28/19 01:15) Lactated Ringers (Lr 1000 Ml Iv Solution (10/28/19 01:09) Urine Culture (10/28/19 00:53) Blood Culture (10/28/19 01:58) Lactic Acid Analyzer (10/28/19 01:58) Ceftriaxone For Iv Use (Rocephin For I (10/28/19 02:00) Ns Iv 1000 Ml (Sodium Chloride 0.9%) (10/28/19 03:18) Ns Iv 1000 Ml (Sodium Chloride 0.9%) (10/28/19 05:00) Hydrocodone/Apap 5/325 Tablet (Lortab 5 (10/28/19 05:30) Medications Given in ED Current Medications Medications Dose Ordered Sig/Dc Route Start Time Stop Time Status Last Admin Dose Admin Ceftriaxone Sodium 1000 mg/ Sterile Water 10 ml @ 200 mls/hr ONCE ONCE IV 10/28/19 02:00 10/28/19 02:03 DC 10/28/19 02:35 200 MLS/HR Ketorolac Tromethamine 15 mg ONCE ONCE IVP 10/28/19 01:15 10/28/19 01:16 DC 10/28/19 02:19 15 MG Sodium Chloride 1,000 ml @ 0 mls/hr Q0M ONCE IV 10/28/19 03:18 10/28/19 03:20 DC 10/28/19 03:30 1,000 MLS/HR Vital Signs/I&O 10/28/19 10/28/19 00:41 02:20 Temp 37.0 37.0 Pulse 115 114 Resp 20 20 B/P (MAP) 104/74 (84) 96/67 Pulse Ox 100 100 O2 Delivery Room Air Room Air Capillary Refill : Less Than 3 Seconds Blood Pressure Mean: 84 Progress Note #1: Time: 04:30 Progress Note Toradol was given for pain. Patient was found to have pyelonephritis with significant infection on urinalysis. I do not believe she has a ureteral stone as her pain was of gradual onset and there is not a significant amount of blood in her urine. Patient states this pain does not seem similar to pain she experienced with kidney sounds. However, CT scan for stone search could be considered if pain does not improve. Lactic acid and blood cultures were drawn. She was treated with Rocephin. 2 L of IV fluid have now been infused. Blood pressures have been marginal but are largely positional. She likes to lay in the position with her arm bent. When lying supine or sitting with her arm at her side her blood pressures are normal. Historical review of her blood pressures also reveals that her blood pressure is typically on the lower range in the 100s, and she is also of very small stature. Lactic acid is normal suggesting she is not truly septic. I therefore do not believe the patient has severe sepsis or septic shock. Progress Note #2: Time: 05:29 Progress Note A third liter of IV fluid was started before transfer to the cardiac step down unit. Patient complained of being chilled with IV fluids but her temperature was 98.0. Pain was starting to rebound prior to transfer to her room. A hydrocodone was given for further treatment of pain. Departure Communication (Admissions) Time/Spoke to Admitting Phy: 03:20 Dr. Mike Impression Primary Impression: Pyelonephritis Additional Impression: Hypotension Qualified Codes: I95.9 - Hypotension, unspecified Disposition: ADMITTED INPATIENT Condition: Improved Admissions Decision to Admit Reason: Admit from ER (General) Decision to Admit/Date: Oct 28, 2019 Time/Decision to Admit Time: 03:15 Departure-Patient Inst. Referrals: [facility] (PCP/Family) Primary Care Physician CAREY GERMAN MD Oct 28, 2019 04:19
[2019-10-28] MEDS: NS IV 1000 ML 1,000 ML IV SCH ×3 (05:00→18:08)
[2019-10-28] MEDS ORDERED: HYDROcodone/APAP 5 MG/325 MG (LORTAB) TAB PO ONE (05:30)
--- NOTE | 2019-10-28 07:00 | NUR ---
PT REPORT AND CARE TRANSFERRED TO [facility]
[2019-10-28] MEDS ORDERED: KETOROLAC 15 MG/ML VIAL IVP PRN (08:15)
[2019-10-28] MEDS ORDERED: LACTATED RINGERS 1,000 ML IV SCH (08:15)
[2019-10-28] MEDS ORDERED: ONDANSETRON 4 MG/2 ML (SDV) Z0FRAN IVP PRN (08:15)
--- NOTE | 2019-10-28 10:13 | History & Physical-Hospitalist ---
History of Present Illness HPI/Chief Complaint CC: Sepsis from pyelonephritis HPI: This is a 28yoWF who presented to the ER with fever and lethargy and found to have severe pyelonephritis with borderline low BP without evidence of severe sepsis and end organ insufficiency. Patient is disabled from a learning disability and lives with her parents. Patient appears to have facial lesions c/w prior meth use? IVF initiated and IV abx and patient feels better. Transfer to 4th floor initiated. Source: patient, RN/MD Exam Limitations: no limitations Date Seen 10/28/19 Time Seen by a Provider: 10:00 Attending Physician Silvia Mike DO [facility] Referring Physician Date of Admission Oct 28, 2019 at 03:24 Home Medications & Allergies Home Medications Reviewed patient Home Medication Reconciliation performed by pharmacy medication reconciliations hemodialysis lab technician and/or nursing. Patients Allergies have been reviewed. Allergies Allergies Coded Allergies No Known Drug Allergies (Kitaqbcelq44/23/16) Past Tpwneuq-Rvfypr-Bpjsnb Hx Past Med/Social Hx: Reviewed Nursing Past Med/Soc Hx, Reviewed and Corrections made Patient Social History Marrital Status: single Employed/Student: unemployed Alcohol Use: Denies Use Recreational Drug Use: Yes (METH, XANAX) Smoking Status: Current Everyday Smoker Type Used: Cigarettes 2nd Hand Smoke Exposure: Yes Recent Foreign Travel: No Contact w/other who traveled: No Recent Hopitalizations: No Recent Infectious Disease Expo: No Immunizations Up To Date Tetanus Booster (TDap): Unknown Pediatric: Yes Seasonal Allergies Seasonal Allergies: No Past Medical History Surgeries: Section, Hysterectomy, Tonsillectomy Neurological: Developmental Disorder : No 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: Yes (DUB, UTERINE PROLAPSE) Sexually Transmitted Disease: No Female 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: Denies Hysterectomy Genitourinary: Bladder Infection, Kidney Stones Loss of Vision: Bilateral Hearing Impairment: Denies Psychosocial: Sleep Difficulties, Anxiety, Suicide Attempts, Personality Disorder, Depression History of Blood Disorders: No Adverse Reaction to Blood Schultz: No (N/A) Family History No Family History of: Asthma Completed stroke Diabetes mellitus Hypertension Myocardial infarction Seizure disorder No Pertinent Family Hx Review of Systems Constitutional: see HPI, fever, malaise, weakness Genitourinary: dysuria, frequency Physical Exam Physical Exam Vital Signs Vital Signs - First Documented 10/28/19 00:41 Temp 37.0 Pulse 115 Resp 20 B/P (MAP) 104/74 (84) Pulse Ox 100 O2 Delivery Room Air Capillary Refill : Less Than 3 Seconds Height, Weight, BMI Height: 5'0.00" Weight: 103lbs. 0.0oz. 46.210625ml; 22.00 BMI Method:Stated General Appearance: No Apparent Distress, Chronically ill, Thin Eyes: Right Eye Normal Inspection, Right Eye PERRL HEENT: PERRL/EOMI, Normal ENT Inspection, Pharynx Normal, Moist Mucous Membranes Neck: Full Range of Motion, Normal Inspection, Non Tender Respiratory: Chest Non Tender, Lungs Clear, Normal Breath Sounds, No Accessory Muscle Use, No Respiratory Distress Cardiovascular: Regular Rate, Rhythm, No Edema, No Gallop, No JVD, No Murmur, Normal Peripheral Pulses Gastrointestinal: Normal Bowel Sounds, No Organomegaly, No Pulsatile Mass, Non Tender, Soft Back: Normal Inspection, No CVA Tenderness, No Vertebral Tenderness Extremity: Normal Capillary Refill, Normal Inspection, Normal Range of Motion, Non Tender, No Calf Tenderness, No Pedal Edema Neurologic/Psychiatric: Alert, Oriented x3, No Motor/Sensory Deficits, Normal Mood/Affect Skin: Normal Color, Warm/Dry Lymphatic: No Adenopathy Results Results/Procedures Labs Laboratory Tests 10/28/19 01:06 Patient resulted labs reviewed. Assessment/Plan Admission Diagnosis Assessment: Sepsis Hypotension w/o evidence of severe sepsis Acute pyelonephritis placed on Rocephin IV Learning disability lifelong h/o meth use? facial skin lesions noted Plan: IVF IV abx Tx to 4th Admission Status: Inpatient Order (span 2 midnights) Reason for Inpatient Admission: sepsis with hypotension Diagnosis/Problems Diagnosis/Problems (1) Pyelonephritis Status: Acute (2) Hypotension Status: Acute Qualifiers: Hypotension type: unspecified hypotension type Qualified Codes: I95.9 - Hypotension, unspecified Clinical Quality Measures DVT/VTE Risk/Contraindication: Risk Factor Score Per Nursin RFS Level Per Nursing on Admit: 4+=Very High SILVIA MIKE DO Oct 28, 2019 10:13
[2019-10-28] MEDS: ENOXAPARIN 40 MG/0.4 ML (LOVENOX) SYR SC SCH ×2 (10:52→10:54)
[2019-10-28] MEDS: HYDROcodone/APAP 5 MG/325 MG (LORTAB) TAB PO PRN ×2 (14:13→18:06)
--- NOTE | 2019-10-28 15:51 | NUR ---
PT REPORT GIVEN TO BA GREENWOOD. PT TO BE TRANSFERRED TO ROOM 408 AT THIS TIME.
--- NOTE | 2019-10-28 16:00 | NUR ---
Report from Selvin GREENWOOD, patient to room 408, patient oriented to room and call light. Will assume care of patient at this time.
[2019-10-29] VITALS: BP 113/76
[2019-10-29] MEDS: HYDROcodone/APAP 5 MG/325 MG (LORTAB) TAB PO PRN ×2 (00:35→06:32)
[2019-10-29] MEDS: NS IV 1000 ML 1,000 ML IV SCH ×2 (01:28→08:27)
[2019-10-29] MEDS ORDERED: cefTRIAXone 1,000 MG IV (ROCEPHIN) VIAL ONE (01:46)
[2019-10-29] MEDS ORDERED: WATER (STERILE) FOR INJECTION 10 ML ONE (01:46)
[2019-10-29] MEDS ORDERED: cefTRIAXone FOR IV USE 1,000 MG in WATER (STERILE) FOR INJECTION 10 ML IV SCH (02:00)
[2019-10-29 04:00] VITALS: BP 112/78
--- NOTE | 2019-10-29 05:00 | NUR ---
Lab attempted to draw blood from the patient twice but was unsuccessful. Pt refused any more blood draws. Educated pt about importance of blood draws, pt still refused. Will try to talk to patient again before shift change.
[2019-10-29 08:00] VITALS: BP 111/73
[2019-10-29] MEDS ORDERED: CEFD300C3 PO (12:09)
--- NOTE | 2019-10-29 12:10 | Discharge Summary ---
Discharge Summary Hospital Course Was the Problem List Reviewed?: Yes Problems/Dx: (1) Pyelonephritis Status: Acute (2) Hypotension Status: Acute Qualifiers: Qualified Codes: I95.9 - Hypotension, unspecified Hospital Course Date of Admission: Oct 28, 2019 at 03:24 Admission Diagnosis : Family Physician/Provider: Mekhi Sanchez - [facility] Date of Discharge: 10/29/19 Discharge Diagnosis: Pyelonephritis, hypotension, learning disability, CHRISTINA hx Hospital Course: Short course after admitted for pyelonephritis with hypotension not severe sepsis. Rocephin initiated along with IVF and sepsis treated. Patient was deemed stable for DC home. Labs and Pending Lab Test: Microbiology 10/28/19 Urine Culture - Preliminary, Resulted Escherichia coli Home Meds Active Cefdinir 300 Mg Capsule 300 Mg PO BID Nitrofurantoin (Nitrofurantoin Macrocrystal) 100 Mg Capsule 100 Mg PO BID Tylenol (Acetaminophen) 325 Mg Tablet 650 Mg PO Q6H Cephalexin 250 Mg Capsule 500 Mg PO QID 6 Days Reported Divalproex Sodium 250 Mg Tablet.dr 250 Mg PO BID LAST FILLED #30 8-17-17 Assessment/Pt Instructions [facility] 1 week Discharge Planning: <30 minutes discharge planning Discharge Instructions Discharge Diet: No Restrictions Discharge Physical Examination Vital Signs Vital Signs Date Time Temp Pulse Resp B/P (MAP) Pulse Ox O2 Delivery O2 Flow Rate FiO2 10/29/19 08:00 Room Air 10/29/19 08:00 36.9 93 20 111/73 (86) 98 General Appearance: No Apparent Distress, WD/WN Allergies: Coded Allergies: No Known Drug Allergies (Unverified , 06/24/16) Discharge Summary Date of Admission Oct 28, 2019 at 03:24 Date of Discharge Discharge Date: Oct 29, 2019 Admission Diagnosis Assessment: Sepsis Hypotension w/o evidence of severe sepsis Acute pyelonephritis placed on Rocephin IV Learning disability lifelong h/o meth use? facial skin lesions noted Plan: IVF IV abx Tx to 4th Discharge Diagnosis (1) Pyelonephritis Status: Acute (2) Hypotension Status: Acute Qualifiers: Qualified Codes: I95.9 - Hypotension, unspecified Clinical Quality Measures DVT/VTE Risk/Contraindication: Risk Factor Score Per Nursin RFS Level Per Nursing on Admit: 4+=Very High SOM AVITIA DO Oct 29, 2019 12:10
== END 2019-10-29 14:53 | disposition home or self-care (01) | DRG 872 ==
LOC: EDUNIT# 00:19 → ER 00:23 → ICU 03:24 → 4TH 16:49
PROVIDERS: ADMIT Internal Medicine; ATTEND Internal Medicine
DX: A41.9 Sepsis, unspecified organism (principal); N10 Acute pyelonephritis; I95.9 Hypotension, unspecified; F81.9 Developmental disorder of scholastic skills, unspecified; L98.9 Disorder of the skin and subcutaneous tissue, unspecified; F15.90 Other stimulant use, unspecified, uncomplicated; F41.9 Anxiety disorder, unspecified; F32.9 Major depressive disorder, single episode, unspecified; F60.9 Personality disorder, unspecified; F17.210 Nicotine dependence, cigarettes, uncomplicated; Z90.49 Acquired absence of other specified parts of digestive tract; Z90.710 Acquired absence of both cervix and uterus
CPT/HCPCS: 36415; 80053; 81000; 83605; 84703; 85025; 86141; 87040; 87088; 87186

== ENCOUNTER → 2020-07-19 | Outpatient (CLI) | payer MEDICARE, MEDICAID ==
[~2020-07-19] MED LIST changes: +CEFD300C3 PO; +MIRT-96 PO; -MIRT15TA PO; -OXYC-465 PO; +OXYC-556 PO
--- NOTE | 2020-07-19 10:55 | Diagnostic Imaging Report ---
PROCEDURE: CT abdomen and pelvis without contrast. TECHNIQUE: Multiple contiguous axial images were obtained through the abdomen and pelvis without the use of intravenous contrast. Auto Exposure Controls were utilized during the CT exam to meet ALARA standards for radiation dose reduction. INDICATION: Recurrent urinary tract infections. COMPARISON: No prior studies are available for comparison. FINDINGS: The lung bases are clear. The liver and gallbladder are unremarkable. No biliary ductal dilatation is seen. Pancreas is unremarkable. Spleen does contain a small low density measuring 10 mm in size, too small to characterize. No adrenal mass is detected. No definite renal calculi are identified. There is no hydronephrosis. No definite ureteral or bladder calculi are detected. Bladder is decompressed. Aorta is nonaneurysmal. The small and large bowel loops are normal in caliber. There is no obstruction. Appendix is unremarkable. No free fluid or fluid collection is seen. Bony structures are nonacute. IMPRESSION: Essentially unremarkable noncontrast CT of the abdomen and pelvis. No definite urinary tract calculi or obstruction are identified. Dictated by: Dictated on workstation # [id number]
== END ==
LOC: RAD 09:13
PROVIDERS: ATTEND Urology
DX: N39.0 Urinary tract infection, site not specified (principal)
CPT/HCPCS: 74176

== ENCOUNTER → 2021-03-27 | Outpatient (CLI) | payer MEDICARE, MEDICAID | LOC: LAB 15:52 | PROVIDERS: ATTEND Nurse Practitioner Family | DX: Z11.4 Encounter for screening for human immunodeficiency virus [HIV] (principal) ==

== ENCOUNTER 2022-06-08 18:27 | Emergency (ER) | payer MEDICAID, MEDICARE ==
[~2022-06-08] VITALS: Ht 152.4 cm; Wt 48.0 kg
[2022-06-08] MEDS ORDERED: morphine INJ 10 MG/ML 1ML (SYR OR VIAL) IVP STA (18:38)
[2022-06-08] MEDS ORDERED: NS IV ONE (18:45)
[2022-06-08] MEDS ORDERED: KETOROLAC 30 MG/ML VIAL IVP ONE (18:45)
[2022-06-08] MEDS ORDERED: cefTRIAXone 1 GM PRE-MIX 50 ML IV ONE (18:45)
--- NOTE | 2022-06-08 18:45 | ED GU-Female ---
General Chief Complaint: Abdominal/GI Problems Stated Complaint: FEVER 103,KIDNEY PAIN Nursing Triage Note: PT AMB TO RM 4 WITH COMPLAINT OF KIDNEY PAIN. STATES HAS ONLY PEED ONCE TODAY AND IS RUNNING A FEVER. Source: patient Exam Limitations: no limitations History of Present Illness Date Seen by Provider: Jun 08, 2022 Time Seen by Provider: 18:30 Initial Comments 31-year-old female with past medical history of polysubstance use disorder and prior kidney stones coming in due to bilateral flank pain. Been going on for about a week, worsening over time, sharp, feels similar to previous kidney infections. She states it feels different than kidney stones. Started noticing a fever today. Took ibuprofen and Tylenol earlier today. Denies any nausea, vomiting, chest pain, shortness of breath, abdominal pain, diarrhea, vaginal bleeding, or any other concerns. Does endorse some dysuria. Allergies and Home Medications Allergies Coded Allergies: No Known Drug Allergies (Unverified , 06/24/16) Patient Home Medication List Home Medication List Reviewed: Yes Cefdinir (Cefdinir) 300 Mg Capsule, 300 MG PO BID Prescribed by: SOM AVITIA on 10/29/19 1209 Cefdinir (Cefdinir) 300 Mg Capsule, 300 MG PO BID Prescribed by: NOMI CORONADO on 06/08/221941 Review of Systems Review of Systems Constitutional: fever EENTM: no symptoms reported Respiratory: no symptoms reported Cardiovascular: no symptoms reported Gastrointestinal: no symptoms reported Genitourinary: see HPI Musculoskeletal: no symptoms reported Skin: no symptoms reported Psychiatric/Neurological: No Symptoms Reported Endocrine: No Symptoms Reported Hematologic/Lymphatic: No Symptoms Reported All Other Systemes Reviewed Negative Unless Noted: Yes Past Xmnqmva-Cxccar-Gzqfkk Hx Patient Social History Tobacco Use?: Yes Smoking Status: Current Everyday Smoker Use of E-Cig and/or Vaping dev: No Substance use?: Yes Substance type: Marijuana Alcohol Use?: No Pt feels they are or have been: No Immunizations Up To Date Tetanus Booster (TDap): Unknown PED Vaccines UTD: Yes Seasonal Allergies Seasonal Allergies: No Past Medical History Surgeries: Yes (D&C; X 2; HYST/OVARIES INTACT) Section, Hysterectomy, Tonsillectomy Respiratory: No Cardiac: No Neurological: No 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: Yes (DUB, UTERINE PROLAPSE) Female 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: Menstrual Problems [employer] History: Hysterectomy Sexually Transmitted Disease: No Genitourinary: Yes Bladder Infection, Kidney Stones Gastrointestinal: No Musculoskeletal: No Endocrine: No HEENT: No Loss of Vision: Bilateral Hearing Impairment: Denies Cancer: No Psychosocial: Yes (POLYSUBSTANCE ABUSE) Sleep Difficulties, Anxiety, Suicide Attempts, Personality Disorder, Depression Integumentary: No Blood Disorders: No Adverse Reaction/Blood Tranf: No (N/A) Family Medical History No Family History of: Asthma Completed stroke Diabetes mellitus Hypertension Myocardial infarction Seizure disorder No Pertinent Family Hx Physical Exam Vital Signs Vital Signs - First Documented 06/08/22 18:35 Temp 38.0 Pulse 139 Resp 20 B/P (MAP) 134/86 (102) Pulse Ox 98 O2 Delivery Room Air Capillary Refill : Less Than 3 Seconds Height, Weight, BMI Height: 5'0.00" Weight: 103lbs. 0.0oz. 46.436813mt; 20.00 BMI Method:Stated General Appearance: WD/WN, mild distress HEENT: PERRL/EOMI, normal ENT inspection, pharynx normal Neck: non-tender, full range of motion, supple, normal inspection Cardiovascular: no edema, no murmur, tachycardia Respiratory: chest non-tender, lungs clear, normal breath sounds, no respiratory distress, no accessory muscle use Gastrointestinal: normal bowel sounds, non tender, soft; No distended, No guarding, No rebound Back: normal inspection, no vertebral tenderness, CVA tenderness (R), CVA tenderness (L) Extremities: normal range of motion, non-tender, normal inspection, no pedal edema, no calf tenderness, normal capillary refill Neurologic/Psychiatric: no motor/sensory deficits, alert, normal mood/affect Skin: normal color, warm/dry Lymphatic: no adenopathy Focused Exam Lactate Level 06/08/22 18:55: Lactic Acid Level 1.09 Lactic Acid Level Laboratory Tests Test 06/08/22 18:55 Lactic Acid Level 1.09 MMOL/L (0.50-2.00) Progress/Results/Core Measures Suspected Sepsis SIRS Temperature: Pulse: 139 Respiratory Rate: 20 Laboratory Tests 06/08/22 18:55: White Blood Count 6.0 Blood Pressure 134 /86 Mean: 102 06/08/22 18:55: Lactic Acid Level 1.09 Laboratory Tests 06/08/22 18:55: Creatinine 0.80, INR Comment 1.1, Platelet Count 222, Total Bilirubin 0.2 Results/Orders Lab Results Laboratory Tests Test 06/08/22 18:55 06/08/22 19:10 Range/Units White Blood Count 6.0 4.3-11.0 10^3/uL Red Blood Count 4.28 3.80-5.11 10^6/uL Hemoglobin 13.4 11.5-16.0 g/dL Hematocrit 38 35-52 % Mean Corpuscular Volume 89 80-99 fL Mean Corpuscular Hemoglobin 31 25-34 pg Mean Corpuscular Hemoglobin Concent 35 32-36 g/dL Red Cell Distribution Width 11.8 10.0-14.5 % Platelet Count 222 130-400 10^3/uL Mean Platelet Volume 10.0 9.0-12.2 fL Immature Granulocyte % (Auto) 1 % Neutrophils (%) (Auto) 76 H 42-75 % Lymphocytes (%) (Auto) 6 L 12-44 % Monocytes (%) (Auto) 15 H 0-12 % Eosinophils (%) (Auto) 3 0-10 % Basophils (%) (Auto) 0 0-10 % Neutrophils # (Auto) 4.5 1.8-7.8 10^3/uL Lymphocytes # (Auto) 0.3 L 1.0-4.0 10^3/uL Monocytes # (Auto) 0.9 0.0-1.0 10^3/uL Eosinophils # (Auto) 0.2 0.0-0.3 10^3/uL Basophils # (Auto) 0.0 0.0-0.1 10^3/uL Immature Granulocyte # (Auto) 0.0 0.0-0.1 10^3/uL Neutrophils % (Manual) 86 % Lymphocytes % (Manual) 3 % Monocytes % (Manual) 9 % Eosinophils % (Manual) 2 % Blood Morphology Comment NORMAL Prothrombin Time 14.7 12.2-14.7 SEC INR Comment 1.1 0.8-1.4 Activated Partial Thromboplast Time 30 24-35 SEC Sodium Level 138 135-145 MMOL/L Potassium Level 3.1 L 3.6-5.0 MMOL/L Chloride Level 102 98-107 MMOL/L Carbon Dioxide Level 23 21-32 MMOL/L Anion Gap 13 5-14 MMOL/L Blood Urea Nitrogen 8 7-18 MG/DL Creatinine 0.80 0.60-1.30 MG/DL Estimat Glomerular Filtration Rate 100 BUN/Creatinine Ratio 10 Glucose Level 107 H 70-105 MG/DL Lactic Acid Level 1.09 0.50-2.00 MMOL/L Calcium Level 9.2 8.5-10.1 MG/DL Corrected Calcium 9.0 8.5-10.1 MG/DL Total Bilirubin 0.2 0.1-1.0 MG/DL Aspartate Amino Transf (AST/SGOT) 32 5-34 U/L Alanine Aminotransferase (ALT/SGPT) 47 0-55 U/L Alkaline Phosphatase 63 40-136 U/L Total Protein 7.4 6.4-8.2 GM/DL Albumin 4.3 3.2-4.5 GM/DL Urine Color YELLOW Urine Clarity SL CLOUDY Urine pH 6.0 5-9 Urine Specific [place] 1.015 L 1.016-1.022 Urine Protein NEGATIVE NEGATIVE Urine Glucose (UA) NEGATIVE NEGATIVE Urine Ketones 1+ H NEGATIVE Urine Nitrite POSITIVE H NEGATIVE Urine Bilirubin NEGATIVE NEGATIVE Urine Urobilinogen 1.0 < = 1.0 MG/DL Urine Leukocyte Esterase NEGATIVE NEGATIVE Urine RBC (Auto) NEGATIVE NEGATIVE Urine RBC NONE /HPF Urine WBC NONE /HPF Urine Squamous Epithelial Cells 0-2 /HPF Urine Renal Epithelial Cells NONE /HPF Urine Crystals NONE /LPF Urine Bacteria LARGE H /HPF Urine Casts NONE /LPF Urine Mucus NEGATIVE /LPF Urine Culture Indicated CULTURE PENDING Urine Opiates Screen POSITIVE H NEGATIVE Urine Oxycodone Screen NEGATIVE NEGATIVE Urine Methadone Screen NEGATIVE NEGATIVE Urine Propoxyphene Screen NEGATIVE NEGATIVE Urine Barbiturates Screen NEGATIVE NEGATIVE Ur Tricyclic Antidepressants Screen NEGATIVE NEGATIVE Urine Phencyclidine Screen NEGATIVE NEGATIVE Urine Amphetamines Screen POSITIVE H NEGATIVE Urine Methamphetamines Screen POSITIVE H NEGATIVE Urine Benzodiazepines Screen NEGATIVE NEGATIVE Urine Cocaine Screen NEGATIVE NEGATIVE Urine Cannabinoids Screen NEGATIVE NEGATIVE My Orders Orders - NOMI CORONADO MD Ct Abd/Pelvis Wo(Kidney Stone) (06/08/22 18:38) Ed Iv/Invasive Line Start (06/08/22 18:38) Cbc With Automated Diff (06/08/22 18:38) Comprehensive Metabolic Panel (06/08/22 18:38) Blood Culture (06/08/22 18:38) Sputum Culture (06/08/22 18:38) Urinalysis (06/08/22 18:38) Urine Culture (06/08/22 18:38) Protime With Inr (06/08/22 18:38) Partial Thromboplastin Time (06/08/22 18:38) Vital Signs Adult Sepsis Patie Q15M (06/08/22 18:38) O2 (06/08/22 18:38) Remove Rings In Anticipation O (06/08/22 18:38) Lactic Acid Analyzer (06/08/22 18:38) Ns Iv 1000 Ml (Sodium Chloride 0.9%) (06/08/22 18:45) Ceftriaxone 1 Gm Pre-Mix (Rocephin 1 Gm (06/08/22 18:45) Morphine Injection (Morphine Injection (06/08/22 18:38) Ketorolac Injection (Toradol Injection) (06/08/22 18:45) Drug Screen Stat (Urine) (06/08/22 18:42) Manual Differential (06/08/22 18:55) Medications Given in ED Current Medications Medications Dose Ordered Sig/Dc Route Start Time Stop Time Status Last Admin Dose Admin Ceftriaxone Sodium/Dextrose 50 ml @ 100 mls/hr ONCE ONCE IV 06/08/22 18:45 06/08/22 19:14 DC 06/08/22 19:10 100 MLS/HR Ketorolac Tromethamine 15 mg ONCE ONCE IVP 06/08/22 18:45 06/08/22 18:46 DC 06/08/22 18:59 15 MG Sodium Chloride 1,620 ml @ 1,620 mls/hr ONCE ONCE IV 06/08/22 18:45 06/08/22 19:44 06/08/22 19:11 1,620 MLS/HR Vital Signs/I&O 06/08/22 18:35 Temp 38.0 Pulse 139 Resp 20 B/P (MAP) 134/86 (102) Pulse Ox 98 O2 Delivery Room Air Capillary Refill : Less Than 3 Seconds Blood Pressure Mean: 102 Progress Note : Progress Note 31-year-old female with above history coming in due to bilateral flank pain with fever. The patient was tachycardic and febrile on presentation. Given IV Toradol, morphine for pain. Given 2 L of IV fluids as well. Urinalysis concerning for infection, and clinically she has pyelonephritis. CT abdomen pelvis without contrast ordered and there was some questionable mural thickening at the colorectal junction. She is not having any rectal pain, rectal bleeding, diarrhea, or any other concerns from that nature. Her urinalysis is consistent with infection, and that seems to be the more likely culprit. She was given IV ceftriaxone. Lactic acid and white blood cell count normal. We will start her on antibiotics for pyelonephritis as an outpatient. I believe she stable for discharge with outpatient follow-up. She was sent home with strict return precautions. Of note, I have also reviewed the patient's previous microbiology reports from her previous urinalysis. She has grown out E. coli that has been sensitive to cephalosporins in the past Diagnostic Imaging Diagonstic Imaging: CT (abd/pelvis) Comments NAME: [facility] REC#: [id number] PT STATUS: REG ER : 1990 PHYSICIAN: NOMI CORONADO MD ADMIT DATE: 06/08/22/ER Draft Date of Exam:06/08/22 CT ABD/PELVIS WO(KIDNEY STONE) PROCEDURE: CT urinary tract, rule out kidney stone. TECHNIQUE: Multiple contiguous axial images were obtained through the abdomen and pelvis without the use of intravenous contrast. Auto Exposure Controls were utilized during the CT exam to meet ALARA standards for radiation dose reduction. INDICATION: Flank pain COMPARISON: 07/19/2020 Unenhanced images of liver, gallbladder, pancreas, adrenal glands and spleen are stable with 0.8 cm low-density focus in the spleen. There is no evidence of renal calculus, hydronephrosis or ureteric stone. There is no free fluid seen within the abdomen or pelvis. There is no evidence of bowel obstruction. There is possible mural thickening at the colorectal junction. No organized fluid collection is seen and there is no evidence of focal inflammation. IMPRESSION: No definite acute abnormality is identified. Questionable mural thickening is seen at the colorectal junction although this could be related to incomplete distention. Depending on risk factors, consideration should be given to endoscopic assessment or follow-up exam. Dictated on workstation # [id number] Dict: 06/08/221929 Trans: 06/08/221936 [facility] [id number] Interpreted by: MARIAJOSE GEORGE MD Electronically signed by: Departure Impression Primary Impression: Pyelonephritis Disposition: 01 HOME, SELF-CARE Condition: Stable Departure-Patient Inst. Decision time for Depature: 19:42 Referrals: [facility] (PCP/Family) Primary Care Physician Patient Instructions: Kidney Infection Add. Discharge Instructions: You do have a kidney infection. He will be on antibiotics for the next 10 days. Otherwise take ibuprofen 600 mg or Tylenol 1000 mg every 6 hours. You should start to see improvement in the next couple of days. Scripts Cefdinir (Cefdinir) 300 Mg Capsule 300 MG PO BID for 10 Days, #20 CAP 0 Refills Prov: NOMI CORONADO MD 06/08/22 Work/School Note: Work Release Form Date Seen in the Emergency Department: Jun 08, 2022 Return to Work: Jun 10, 2022 Restrictions: Return-No Fever (24hrs) NOMI CORONADO MD Jun 08, 2022 18:44
[2022-06-08 19:02] LABS: BASOPHILS % (AUTO) 0 % (0-10); EOSINOPHILS # (AUTO) 0.2 10^3/uL (0.0-0.3); EOSINOPHILS % (AUTO) 3 % (0-10); HEMATOCRIT 38 % (35-52); HEMOGLOBIN 13.4 g/dL (11.5-16.0); LYMPHOCYTES # (AUTO) 0.3 10^3/uL (1.0-4.0); LYMPHOCYTES % (AUTO) 6 % (12-44); MEAN CORPUSCULAR HEMOGLOBIN 31 pg (25-34); MEAN CORPUSCULAR HGB CONC 35 g/dL (32-36); MEAN CORPUSCULAR VOLUME 89 fL (80-99); MONOCYTES # (AUTO) 0.9 10^3/uL (0.0-1.0); MONOCYTES % (AUTO) 15 % (0-12); NEUTROPHILS # (AUTO) 4.5 10^3/uL (1.8-7.8); NEUTROPHILS % (AUTO) 76 % (42-75); PLATELET COUNT 222 10^3/uL (130-400)
[2022-06-08 19:17] LABS: BILIRUBIN,URINE NEGATIVE (NEGATIVE); CLARITY,URINE SL CLOUDY; COLOR,URINE YELLOW; GLUCOSE, URINE (UA) NEGATIVE (NEGATIVE); KETONES,URINE 1+ (NEGATIVE); LEUKOCYTE ESTERASE ,URINE NEGATIVE (NEGATIVE); NITRITE,URINE POSITIVE (NEGATIVE); PROTEIN,URINE NEGATIVE (NEGATIVE)
[2022-06-08 19:20] LABS: INR 1.1 (0.8-1.4); PROTHROMBIN TIME PATIENT 14.7 SEC (12.2-14.7)
[2022-06-08 19:24] LABS: BACTERIA,URINE LARGE /HPF; SQUAMOUS EPITHELIAL CELL,UR 0-2 /HPF
[2022-06-08 19:30] LABS: EOSINOPHILS % (MANUAL) 2 %; LYMPHOCYTES % (MANUAL) 3 %; MONOCYTES % (MANUAL) 9 %; NEUTROPHILS % (MANUAL) 86 %; RBC MORPH NORMAL
[2022-06-08 19:31] LABS: ALBUMIN 4.3 GM/DL (3.2-4.5); BILIRUBIN,TOTAL 0.2 MG/DL (0.1-1.0); CALCIUM 9.2 MG/DL (8.5-10.1); CREATININE SERUM 0.8 MG/DL (0.60-1.30); POTASSIUM 3.1 MMOL/L (3.6-5.0); TOTAL PROTEIN 7.4 GM/DL (6.4-8.2)
[2022-06-08 19:33] LABS: AMPHETAMINE SCREEN, URINE POSITIVE (NEGATIVE); BARBITURATE SCREEN URINE NEGATIVE (NEGATIVE); BENZODIAZEPINES SCREEN URINE NEGATIVE (NEGATIVE); CANNABINOID SCREEN, URINE NEGATIVE (NEGATIVE); COCAINE SCREEN URINE NEGATIVE (NEGATIVE); METHADONE STAT NEGATIVE (NEGATIVE); OPIATE SCREEN URINE POSITIVE (NEGATIVE); OXYCODONE STAT NEGATIVE (NEGATIVE); PROPOXYPHENE STAT NEGATIVE (NEGATIVE); TRICYCLIC ANTIDEPRESSANTS SCRE NEGATIVE (NEGATIVE)
--- NOTE | 2022-06-08 19:38 | Diagnostic Imaging Report ---
PROCEDURE: CT urinary tract, rule out kidney stone. TECHNIQUE: Multiple contiguous axial images were obtained through the abdomen and pelvis without the use of intravenous contrast. Auto Exposure Controls were utilized during the CT exam to meet ALARA standards for radiation dose reduction. INDICATION: Flank pain COMPARISON: 07/19/2020 Unenhanced images of liver, gallbladder, pancreas, adrenal glands and spleen are stable with 0.8 cm low-density focus in the spleen. There is no evidence of renal calculus, hydronephrosis or ureteric stone. There is no free fluid seen within the abdomen or pelvis. There is no evidence of bowel obstruction. There is possible mural thickening at the colorectal junction. No organized fluid collection is seen and there is no evidence of focal inflammation. IMPRESSION: No definite acute abnormality is identified. Questionable mural thickening is seen at the colorectal junction although this could be related to incomplete distention. Depending on risk factors, consideration should be given to endoscopic assessment or follow-up exam. Dictated by: Dictated on workstation # [id number]
[2022-06-08] MEDS ORDERED: CEFD300C3 PO (19:42)
[2022-06-08 20:00] VITALS: BP 116/81
== END 2022-06-08 20:00 | disposition home or self-care (01) ==
LOC: EDUNIT# 18:27 → ER 18:30
DX: N12 Tubulo-interstitial nephritis, not specified as acute or chronic (principal); F17.200 Nicotine dependence, unspecified, uncomplicated; Z87.442 Personal history of urinary calculi; Z87.440 Personal history of urinary (tract) infections
CPT/HCPCS: 36415; 74176; 80053; 80306; 81000; 83605; 85007; 85027; 85610; 85730; 87040; 87077; 87088; 87186

== ENCOUNTER 2022-10-28 00:41 | Emergency (ER) | payer SELFPAY ==
[~2022-10-28] VITALS: Ht 152.4 cm; Wt 49.0 kg
[2022-10-28 00:59] LABS: BILIRUBIN,URINE NEGATIVE (NEGATIVE); CLARITY,URINE SL CLOUDY; COLOR,URINE YELLOW; GLUCOSE, URINE (UA) NEGATIVE (NEGATIVE); KETONES,URINE NEGATIVE (NEGATIVE); LEUKOCYTE ESTERASE ,URINE NEGATIVE (NEGATIVE); NITRITE,URINE POSITIVE (NEGATIVE); PH,URINE 6.5 (5-9); PROTEIN,URINE NEGATIVE (NEGATIVE)
[2022-10-28] MEDS ORDERED: LACTATED RINGERS 1,000 ML IV ONE (01:00)
[2022-10-28 01:06] LABS: BACTERIA,URINE MODERATE /HPF; WBC,URINE 0-2 /HPF
--- NOTE | 2022-10-28 01:10 | ED GU-Female ---
General Chief Complaint: - 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 Stated Complaint: PAIN OF LEFT & RT KIDNEY Nursing Triage Note: PT A&OX4; PT AMBULATES TO ROOM WITHOUT ASSISTANCE OF ER STAFF; PT PRESENTS TO ER WITH C/O BILATERAL FLANK PAIN; PT ADVISES THAT SHE HAS A HISTORY OF UTI'S; STARTING LAST WEEK PT REPORTS INCREASING PAIN WITH ASSOCIATED URINARY FREQUENCY; PT HAS NOT SEEN ANY OTHER PROVIDERS AND PRESENTED TO ER TONIGHT AFTER PAIN BECAME SIGNIFICANTLY WORSE Source: patient History of Present Illness Date Seen by Provider: Oct 28, 2022 Time Seen by Provider: 00:50 Initial Comments PT ARRIVES VIA POV FROM HOME WITH MALE C/O BILATERAL FLANK PAIN, AND PAIN/BURNING ON URINATION, ALONG WITH FREQUENCY AND URINE HAS A STRONG ODOR FOR 7-8 DAYS + NAUSEA, NO VOMITING NO FEVER SHE HAS HISTORY OF SAME MULTIPLE TIMES SHE HAS BEEN 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 SHE HAS NOT TAKEN ANYTHING ELSE FOR PAIN SHE HAS NOT SOUGHT CARE UNTIL TONIGHT SHE STATES PAIN IS WORSE TONIGHT PT HAS HAD A PRIOR AND HYSTERECTOMY WITH OVARIES INTACT. SHE SMOKES 1 PPD, DENIES ETOH USE, AND HISTORY OF IV METHAMPHETAMINE USE WELL SMOKING IT, ALONG WITH SMOKING MARIJUANA. SHE DENIES ANY OTHER MEDICAL PROBLEMS AND DOES NOT TAKE ANY DAILY MEDICATIONS SHE DOES NOT SEE A DR REGULARLY--USES ER OR [facility] FOR ALL MEDICAL CARE. PCP: KATIE Allergies and Home Medications Allergies Coded Allergies: No Known Drug Allergies (Unverified , 06/24/16) Patient Home Medication List Home Medication List Reviewed: Yes Cefdinir (Cefdinir) 300 Mg Capsule, 300 MG PO BID Prescribed by: SOM AVITIA on 10/29/19 120 Cefdinir (Cefdinir) 300 Mg Capsule, 300 MG PO BID Prescribed by: NOMI CORONADO on 06/08/221941 Ciprofloxacin HCl (Ciprofloxacin HCl) 500 Mg Tablet, 500 MG PO BID Prescribed by: JOSE LINTON on 10/28/22 0200 Review of Systems Review of Systems Constitutional: no symptoms reported EENTM: no symptoms reported Respiratory: no symptoms reported Cardiovascular: no symptoms reported Gastrointestinal: see HPI, abdominal pain; No constipation, No diarrhea; nausea; No vomiting Genitourinary: see HPI, dysuria, frequency, flank pain, pain, urgency : No Musculoskeletal: see HPI, back pain Skin: no symptoms reported Psychiatric/Neurological: No Symptoms Reported Endocrine: No Symptoms Reported Hematologic/Lymphatic: No Symptoms Reported Past Tybbyyx-Izjfpb-Vojcst Hx Patient Social History Tobacco Use?: Yes Tobacco type used: Cigarettes Smoking Status: Current Everyday Smoker Substance use?: Yes Substance type: Methamphetamine, Marijuana Alcohol Use?: No Pt feels they are or have been: No Immunizations Up To Date Tetanus Booster (TDap): Unknown PED Vaccines UTD: Yes Influenza Vaccine Up-to-Date: No; Not Current First/Initial COVID19 Vaccinat: N/A Seasonal Allergies Seasonal Allergies: No Past Medical History Surgeries: Yes (D&C; X 2; HYST/OVARIES INTACT) Section, Hysterectomy, Tonsillectomy Respiratory: No Cardiac: No Neurological: No 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: Yes (DUB, UTERINE PROLAPSE) Female 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: Menstrual Problems [employer]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 Sexually Transmitted Disease: No Genitourinary: Yes Bladder Infection, Kidney Stones Gastrointestinal: No Musculoskeletal: No Endocrine: No HEENT: No Loss of Vision: Bilateral Hearing Impairment: Denies Cancer: No Psychosocial: Yes (POLYSUBSTANCE ABUSE) Sleep Difficulties, Anxiety, Suicide Attempts, Personality Disorder, Depression Integumentary: No Blood Disorders: No Adverse Reaction/Blood Tranf: No (N/A) Family Medical History No Family History of: Asthma Completed stroke Diabetes mellitus Hypertension Myocardial infarction Seizure disorder No Pertinent Family Hx SOCIAL HISTORY: -SMOKES 1 PPD -DENIES ETOH USE -DRUGS--+IV METHAMPHETAMINE USE WELL SMOKES IT. ALSO SMOKES MARIJUANA ON REGULAR BASIS PAST SURGICAL HISTORY: -D&C - X 2 -HYSTERECTOMY WITH INTACT OVARIES -TONSILLECTOMY Physical Exam Vital Signs Vital Signs - First Documented 10/28/22 00:50 Temp 36.2 Pulse 82 Resp 16 B/P (MAP) 122/86 (98) Pulse Ox 100 O2 Delivery Room Air Capillary Refill : Less Than 3 Seconds Height, Weight, BMI Height: 5'0.00" Weight: 103lbs. 0.0oz. [id number]; 21.00 BMI Method:Stated General Appearance: WD/WN, no apparent distress, other (DOES NOT APPEAR ILL OR TO BE IN ANY DISCOMFORT OR DISTRESS; UNKEMPT AND MALODOROUS. SHE WALKS UPRIGHT AND MOVES WITHOUT DIFFICULTY. ) HEENT: PERRL/EOMI, other (POOR DENTITION) Cardiovascular: regular rate, rhythm, no murmur Respiratory: normal breath sounds Gastrointestinal: soft, tenderness (SUPRAPUBIC, RLQ, LLQ, BILATERAL FLANKS) Back: CVA tenderness (R), CVA tenderness (L) Extremities: normal inspection, normal capillary refill Neurologic/Psychiatric: no motor/sensory deficits, alert, normal mood/affect, oriented x 3 Skin: normal color, warm/dry, tattoos/piercings (TATTOOS), other (SORES/SCARS/SCABS TO FACE AND ARMS) Progress/Results/Core Measures Suspected Sepsis SIRS Temperature: Pulse: 82 Respiratory Rate: 16 Laboratory Tests 10/28/22 01:29: White Blood Count 8.2 Blood Pressure 122 /86 Mean: 98 Laboratory Tests 10/28/22 01:29: Creatinine 0.73, Platelet Count 210, Total Bilirubin 0.2 Results/Orders Lab Results Laboratory Tests Test 10/28/22 00:51 10/28/22 01:29 Range/Units Urine Color YELLOW Urine Clarity SL CLOUDY Urine pH 6.5 5-9 Urine Specific [place] 1.010 L 1.016-1.022 Urine Protein NEGATIVE NEGATIVE Urine Glucose (UA) NEGATIVE NEGATIVE Urine Ketones NEGATIVE NEGATIVE Urine Nitrite POSITIVE H NEGATIVE Urine Bilirubin NEGATIVE NEGATIVE Urine Urobilinogen 0.2 < = 1.0 MG/DL Urine Leukocyte Esterase NEGATIVE NEGATIVE Urine RBC (Auto) NEGATIVE NEGATIVE Urine RBC NONE /HPF Urine WBC 0-2 /HPF Urine Squamous Epithelial Cells 10-25 H /HPF Urine Crystals NONE /LPF Urine Bacteria MODERATE H /HPF Urine Casts NONE /LPF Urine Mucus NEGATIVE /LPF Urine Culture Indicated YES Urine Opiates Screen NEGATIVE NEGATIVE Urine Oxycodone Screen NEGATIVE NEGATIVE Urine Methadone Screen NEGATIVE NEGATIVE Urine Propoxyphene Screen NEGATIVE NEGATIVE Urine Barbiturates Screen NEGATIVE NEGATIVE Ur Tricyclic Antidepressants Screen NEGATIVE NEGATIVE Urine Phencyclidine Screen NEGATIVE NEGATIVE Urine Amphetamines Screen POSITIVE H NEGATIVE Urine Methamphetamines Screen POSITIVE H NEGATIVE Urine Benzodiazepines Screen NEGATIVE NEGATIVE Urine Cocaine Screen NEGATIVE NEGATIVE Urine Cannabinoids Screen NEGATIVE NEGATIVE White Blood Count 8.2 4.3-11.0 10^3/uL Red Blood Count 4.48 3.80-5.11 10^6/uL Hemoglobin 14.3 11.5-16.0 g/dL Hematocrit 41 35-52 % Mean Corpuscular Volume 92 80-99 fL Mean Corpuscular Hemoglobin 32 25-34 pg Mean Corpuscular Hemoglobin Concent 35 32-36 g/dL Red Cell Distribution Width 11.8 10.0-14.5 % Platelet Count 210 130-400 10^3/uL Mean Platelet Volume 10.1 9.0-12.2 fL Immature Granulocyte % (Auto) 0 % Neutrophils (%) (Auto) 39 L 42-75 % Lymphocytes (%) (Auto) 45 H 12-44 % Monocytes (%) (Auto) 9 0-12 % Eosinophils (%) (Auto) 7 0-10 % Basophils (%) (Auto) 1 0-10 % Neutrophils # (Auto) 3.1 1.8-7.8 10^3/uL Lymphocytes # (Auto) 3.7 1.0-4.0 10^3/uL Monocytes # (Auto) 0.7 0.0-1.0 10^3/uL Eosinophils # (Auto) 0.5 H 0.0-0.3 10^3/uL Basophils # (Auto) 0.1 0.0-0.1 10^3/uL Immature Granulocyte # (Auto) 0.0 0.0-0.1 10^3/uL Percent Immature Platelet Fraction 3.5 0.0-7.6 % Sodium Level 137 135-145 MMOL/L Potassium Level 4.3 3.6-5.0 MMOL/L Chloride Level 105 98-107 MMOL/L Carbon Dioxide Level 22 21-32 MMOL/L Anion Gap 10 5-14 MMOL/L Blood Urea Nitrogen 12 7-18 MG/DL Creatinine 0.73 0.60-1.30 MG/DL Estimat Glomerular Filtration Rate 111 BUN/Creatinine Ratio 16 Glucose Level 81 70-105 MG/DL Calcium Level 8.7 8.5-10.1 MG/DL Corrected Calcium 8.7 8.5-10.1 MG/DL Total Bilirubin 0.2 0.1-1.0 MG/DL Aspartate Amino Transf (AST/SGOT) 21 5-34 U/L Alanine Aminotransferase (ALT/SGPT) 37 0-55 U/L Alkaline Phosphatase 70 40-136 U/L Total Protein 7.0 6.4-8.2 GM/DL Albumin 4.0 3.2-4.5 GM/DL Serum Alcohol < 10 <10 MG/DL My Orders Orders - JOSE LINTON DO Ua Culture If Indicated (10/28/22 00:49) Urine Bedside (10/28/22 00:49) Drug Screen Stat (Urine) (10/28/22 00:50) Ed Iv/Invasive Line Start (10/28/22 00:57) Alcohol (10/28/22 00:57) Cbc With Automated Diff (10/28/22 00:57) Comprehensive Metabolic Panel (10/28/22 00:57) Ed Iv/Invasive Line Start (10/28/22 00:57) Lactated Ringers (Lr 1000 Ml Iv Solution (10/28/22 01:00) Urine Culture (10/28/22 00:51) Ceftriaxone 1 Gm Pre-Mix (Rocephin 1 Gm (10/28/22 01:30) Ketorolac Injection (Toradol Injection) (10/28/22 01:30) Ondansetron Injection (Zofran Injectio (10/28/22 01:30) Medications Given in ED Current Medications Medications Dose Ordered Sig/Dc Route Start Time Stop Time Status Last Admin Dose Admin Ceftriaxone Sodium/Dextrose 50 ml @ 100 mls/hr ONCE ONCE IV 10/28/22 01:30 10/28/22 01:59 DC 10/28/22 01:33 100 MLS/HR Ketorolac Tromethamine 30 mg ONCE ONCE IVP 10/28/22 01:30 10/28/22 01:31 DC 10/28/22 01:31 30 MG Lactated Ringer's 1,000 ml @ 0 mls/hr Q0M ONCE IV 10/28/22 01:00 10/28/22 01:01 DC 10/28/22 01:09 0 MLS/HR Ondansetron HCl 4 mg ONCE ONCE IVP 10/28/22 01:30 10/28/22 01:31 DC 10/28/22 01:31 4 MG Vital Signs/I&O 10/28/22 00:50 Temp 36.2 Pulse 82 Resp 16 B/P (MAP) 122/86 (98) Pulse Ox 100 O2 Delivery Room Air Capillary Refill : Less Than 3 Seconds Blood Pressure Mean: 98 Progress Note : Progress Note GIVEN: -IV FLUIDS -ZOFRAN -TORADOL -ROCEPHIN SYMPTOMS IMPROVED AT DISMISSAL. VITALS STABLE, NO DETERIORATION IN PT'S CONDITION DURING ER STAY NO FEVER, NO TACHYCARDIA OR HYPOTENSION NO EVIDENCE OF SEPSIS BASED ON LAB FINDINGS, EXAM OR VITALS. DISCUSSED ANTICIPATED COURSE, SYMPTOMATIC TREATMENT, MEDICATIONS, NEED FOR FOLLOW UP AND RETURN PRECAUTIONS REVIEWED PRIOR RECORDS INCLUDING ER VISITS, ADMITS/H&P'S/CONSULTS/DISCHARGE SUMMARIES, TESTS/PROCEDURES. Departure Impression Primary Impression: Urinary tract infection Disposition: HOME, SELF-CARE Condition: Stable Departure-Patient Inst. Decision time for Depature: 01:59 Referrals: [facility] (PCP/Family) Primary Care Physician Patient Instructions: Urinary Tract Infection, Adult (DC) Add. Discharge Instructions: HOME, REST LOTS OF CLEAR LIQUIDS--NO COFFEE, POP OR TEA TYLENOL AND MOTRIN NEEDED FOR PAIN NO DRUGS FOLLOW UP WITH [facility] IN 3-4 DAYS IF NO BETTER. All discharge instructions reviewed with patient and/or family. Voiced understanding. Scripts Ciprofloxacin HCl (Ciprofloxacin HCl) 500 Mg Tablet 500 MG PO BID, #14 TAB Prov: JOSE LINTON DO 10/28/22 JOSE LINTON DO Oct 28, 2022 01:10
[2022-10-28 01:14] LABS: AMPHETAMINE SCREEN, URINE POSITIVE (NEGATIVE); BARBITURATE SCREEN URINE NEGATIVE (NEGATIVE); BENZODIAZEPINES SCREEN URINE NEGATIVE (NEGATIVE); CANNABINOID SCREEN, URINE NEGATIVE (NEGATIVE); COCAINE SCREEN URINE NEGATIVE (NEGATIVE); METHADONE STAT NEGATIVE (NEGATIVE); OPIATE SCREEN URINE NEGATIVE (NEGATIVE); OXYCODONE STAT NEGATIVE (NEGATIVE); PROPOXYPHENE STAT NEGATIVE (NEGATIVE); TRICYCLIC ANTIDEPRESSANTS SCRE NEGATIVE (NEGATIVE)
[2022-10-28] MEDS ORDERED: ONDANSETRON 4 MG/2 ML (SDV) Z0FRAN IVP ONE (01:30)
[2022-10-28] MEDS ORDERED: KETOROLAC 30 MG/ML VIAL IVP ONE (01:30)
[2022-10-28] MEDS ORDERED: cefTRIAXone 1 GM PRE-MIX 50 ML IV ONE (01:30)
[2022-10-28 01:35] LABS: EOSINOPHILS # (AUTO) 0.5 10^3/uL (0.0-0.3); HEMATOCRIT 41 % (35-52); HEMOGLOBIN 14.3 g/dL (11.5-16.0); MEAN CORPUSCULAR HEMOGLOBIN 32 pg (25-34); MEAN CORPUSCULAR HGB CONC 35 g/dL (32-36); MEAN CORPUSCULAR VOLUME 92 fL (80-99); MEAN PLATELET VOLUME 10.1 fL (9.0-12.2)
[2022-10-28 01:37] LABS: BASOPHILS # (AUTO) 0.1 10^3/uL (0.0-0.1); BASOPHILS % (AUTO) 1 % (0-10); EOSINOPHILS % (AUTO) 7 % (0-10); LYMPHOCYTES # (AUTO) 3.7 10^3/uL (1.0-4.0); LYMPHOCYTES % (AUTO) 45 % (12-44); MONOCYTES # (AUTO) 0.7 10^3/uL (0.0-1.0); MONOCYTES % (AUTO) 9 % (0-12); NEUTROPHILS # (AUTO) 3.1 10^3/uL (1.8-7.8); NEUTROPHILS % (AUTO) 39 % (42-75); PLATELET COUNT 210 10^3/uL (130-400); WHITE BLOOD COUNT 8.2 10^3/uL (4.3-11.0)
[2022-10-28 01:46] LABS: CHLORIDE 105 MMOL/L (98-107); POTASSIUM 4.3 MMOL/L (3.6-5.0); SODIUM 137 MMOL/L (135-145)
[2022-10-28 01:47] LABS: CALCIUM 8.7 MG/DL (8.5-10.1)
[2022-10-28 01:48] LABS: GLUCOSE 81 MG/DL (70-105)
[2022-10-28 01:49] LABS: CARBON DIOXIDE 22 MMOL/L (21-32)
[2022-10-28 01:50] LABS: BILIRUBIN,TOTAL 0.2 MG/DL (0.1-1.0)
[2022-10-28 01:51] LABS: ALKALINE PHOSPHATASE 70 U/L (40-136)
[2022-10-28 01:52] LABS: CREATININE SERUM 0.73 MG/DL (0.60-1.30); GFR ESTIMATED 111
[2022-10-28 01:53] LABS: BUN/CREATININE RATIO 16
[2022-10-28 01:54] LABS: ALANINE AMINOTRANSFERASE 37 U/L (0-55)
[2022-10-28] MEDS ORDERED: CIPR500T5 PO (02:00)
[2022-10-28 02:15] VITALS: BP 127/81
== END 2022-10-28 02:15 | disposition home or self-care (01) ==
LOC: EDUNIT# 00:41 → ER 00:44
DX: N39.0 Urinary tract infection, site not specified (principal); F17.210 Nicotine dependence, cigarettes, uncomplicated; Z28.310 Unvaccinated for COVID-19
CPT/HCPCS: 80053; 80306; 81000; 84703; 85025; 87088; 99284; G0480; 36415; 80320; 87077; 87186

== ENCOUNTER 2023-06-30 01:09 | Emergency (ER) | payer MEDICARE, MEDICAID ==
[~2023-06-30] VITALS: Ht 152.4 cm; Wt 50.0 kg
[~2023-06-30 01:09] MED LIST changes: +CIPR500T5 PO; +MIRT-122 PO; -MIRT-96 PO
--- NOTE | 2023-06-30 01:14 | ED Integumentary General ---
General Stated Complaint: RIGHT FOREARM LAC Source: patient Exam Limitations: no limitations History of Present Illness Date Seen by Provider: Jun 30, 2023 Time Seen by Provider: 01:14 Initial Comments Patient was playing with a retractable knife and cut her forearm. Denies any numbness tingling or weakness to the wrist or fingers. Unknown last TD - declines one today. I did communicate the risk of not updating her tetanus however the patient continues to decline Timing/Duration: just prior to arrival Severity: moderate Location: extremities (RUE) Associated Symptoms: denies symptoms Allergies and Home Medications Allergies Coded Allergies: No Known Drug Allergies (Unverified , 06/24/16) Patient Home Medication List Home Medication List Reviewed: Yes Cefdinir (Cefdinir) 300 Mg Capsule, 300 MG PO BID Prescribed by: SOM AVITIA on 10/29/19 1209 Cefdinir (Cefdinir) 300 Mg Capsule, 300 MG PO BID Prescribed by: NOMI CORONADO on 06/08/22 194 Ciprofloxacin HCl (Ciprofloxacin HCl) 500 Mg Tablet, 500 MG PO BID Prescribed by: JOSE LINTON on 10/28/22 0200 Review of Systems Review of Systems Constitutional: see HPI Respiratory: no symptoms reported Cardiovascular: no symptoms reported Gastrointestinal: no symptoms reported Musculoskeletal: no symptoms reported Skin: other Past Eddexqx-Fczvrs-[place] Hx Immunizations Up To Date Tetanus Booster (TDap): Unknown PED Vaccines UTD: Yes First/Initial COVID19 Vaccinat: N/A Seasonal Allergies Seasonal Allergies: No Past Medical History Surgeries: Yes (D&C; X 2; HYST/OVARIES INTACT) Section, Hysterectomy, Tonsillectomy Respiratory: No Cardiac: No Neurological: No 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: Yes (DUB, UTERINE PROLAPSE) Female 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: Menstrual Problems [employer]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 Sexually Transmitted Disease: No Genitourinary: Yes Bladder Infection, Kidney Stones Gastrointestinal: No Musculoskeletal: No Endocrine: No HEENT: No Loss of Vision: Bilateral Hearing Impairment: Denies Cancer: No Psychosocial: Yes (POLYSUBSTANCE ABUSE) Sleep Difficulties, Anxiety, Suicide Attempts, Personality Disorder, Depression Integumentary: No Blood Disorders: No Adverse Reaction/Blood Tranf: No (N/A) Family Medical History No Family History of: Asthma Completed stroke Diabetes mellitus Hypertension Myocardial infarction Seizure disorder No Pertinent Family Hx SOCIAL HISTORY: -SMOKES 1 PPD -DENIES ETOH USE -DRUGS--+IV METHAMPHETAMINE USE WELL SMOKES IT. ALSO SMOKES MARIJUANA ON REGULAR BASIS PAST SURGICAL HISTORY: -D&C - X 2 -HYSTERECTOMY WITH INTACT OVARIES -TONSILLECTOMY Physical Exam Vital Signs Vital Signs - First Documented 06/30/23 01:23 Temp 36.6 Pulse 116 Resp 18 B/P (MAP) 114/97 (103) Pulse Ox 100 O2 Delivery Room Air Capillary Refill : General Appearance: WD/WN Respiratory: no respiratory distress, no accessory muscle use Extremities: normal range of motion, non-tender Neurologic/Psychiatric: alert Skin: normal color, warm/dry, other (4cm laceration to the dorsal left distal forearm, mild bleeding noted. At it's center point the laceration extends to muscle belly. no loss of function noted to the extensors of the forearm.) Procedures/Interventions Wound Location: Upper Extremities Other Wound Location right dorsal forearm Wound Length (cm): 4 Wound's Depth, Shape: into muscle Wound Explored: clean Irrigated w/ Saline (ccs): 400 Anesthesia: 1% Lidocaine Volume Anesthetic (ccs): 9 Suture: Ethlion (4-0), Monocryl (4-0) Suture Size: 4-0 Number of Sutures: 8 Layer Closure?: 2 Number Deep Layer Sutures: 1 Sterile Dressing Applied?: Yes Progress/Results/Core Measures Results/Orders Vital Signs/I&O 06/30/23 06/30/23 06/30/23 01:23 02:14 02:27 Temp 36.6 37.0 37.0 Pulse 116 105 107 Resp 18 18 20 B/P (MAP) 114/97 (103) 114/85 (95) 114/73 Pulse Ox 100 100 100 O2 Delivery Room Air Room Air Room Air Progress Progress Note : Time: 02:00 Progress Note Patient seen and evaluated by me. Evaluation today includes history and physical exam, pertinent physical exam findings well-developed well-nourished female, very apprehensive/anxious appears possibly intoxicated on an illicit substance. Patient has a 4 cm laceration over the dorsum of the right forearm distal aspect. Minimal active bleeding is noted. She has normal range of motion at the wrist and fingers, intact strength and sensation, 2+ radial pulse. Differential diagnosis includes simple laceration, tendon injury, possible foreign body After discussion with the patient she consented to closure of the wound. She was very apprehensive. After local anesthesia approximately 8 to 9 cc of 1% plain lidocaine the wound was scrubbed with surgical soap and copiously irrigated with approximately 400 mils of normal saline. Explored for foreign body, none was identified. 1 4-0 Monocryl suture was used to approximate subcutaneous tissues/muscle fascia. This brought the superficial skin margins and closer approximation. 4-0 Ethilon suture was used to close the skin wound. 3 horizontal mattress sutures were placed with 4 superficial interrupted sutures in between each mattress. Hemostasis was achieved. Wound was cleansed again covered with triple antibiotic ointment and a dry gauze dressing. I reviewed wound care precautions with the patient. Advised her to wash it daily, cover with triple antibiotic ointment twice a day for 2 days and then a dry gauze dressing after that. Advised to return to the emergency department for suture removal in 12 to 14 days. Return precautions provided in both verbal and written format. All questions are sought and answered. Patient was improved at discharge. Departure Impression Primary Impression: Forearm laceration Qualified Codes: S51.811A - Laceration without foreign body of right forearm, initial encounter Disposition: HOME, SELF-CARE Condition: Stable Departure-Patient Inst. Decision time for Depature: 02:08 Referrals: NO,LOCAL PHYSICIAN (PCP/Family) Primary Care Physician Patient Instructions: Laceration Repair With Stitches ED Add. Discharge Instructions: You declined/did not want a Tetanus shot today. If you decide you do want one, please follow up with [facility], or a pharmacy such as [facility] may give them. Keep the stitches clean dry and covered for 2-3 days. Wash the wound every day with soap and water. You can use a little triple antibiotic ointment on the suture line twice a day for a couple of days. Then just keep covered with a dry bandage. Come back to the Emergency Department in 12-14 days to have the stitches taken out. Come back sooner if the wound starts to look angry re, gets swollen or has pus around it. SHAISTA BENOIT MD Jun 30, 2023 01:14
[2023-06-30 02:27] VITALS: BP 114/73
== END 2023-06-30 02:27 | disposition home or self-care (01) ==
LOC: EDUNIT# 01:09 → ER 01:12
DX: S51.811A Laceration without foreign body of right forearm, initial encounter (principal); F17.210 Nicotine dependence, cigarettes, uncomplicated; W26.0XXA Contact with knife, initial encounter
CPT/HCPCS: 12002